=== PATIENT | male | born 1940 | race Caucasian/White ===

== ENCOUNTER 2018-09-03 06:24 | Inpatient (IN) ==
[2018-09-02 10:10] LABS: Basophils % 0.3 % (0.0-0.8); Eosinophils # 0.3 10*3/uL (0.0-0.87); Eosinophils % 4.3 % (0.00-10.9); Hematocrit 30.3 VOL% (42.0-52.0); Hemoglobin 9.5 GM/DL (14.0-18.0); Immature Granulocytes % 0.3 %; Immature Granulocytes Absolute 0.02 #; Lymphocytes # 0.6 10*3/uL (1.4-4.0); Lymphocytes % 9.4 % (21.2-54.2); Mean Corpuscular HGB Conc 31.4 GM/DL (32-36); Mean Corpuscular Hemoglobin 30 PG (27-34); Mean Corpuscular Volume 95.3 FL (87-102); Mean Platelet Volume 11.1 FL (9.6-12.0); Monocytes # 0.8 10*3/uL (0.11-0.8); Monocytes % 12.5 % (1.7-12.7); Neutrophils # 4.6 10*3/uL (1.4-7.4); Neutrophils % 73.2 % (38.7-73.9); Platelet Count 157 T/CUMM (130-400); Red Blood Count 3.18 MC/CUMM (3.8-5.5); Red Cell Distribution Width 14.4 % (9.3-17.3); White Blood Count 6.3 T/CUMM (4-12)
[2018-09-02 10:18] LABS: INR 1.1; PT Patient Result 11.4 SECS
[2018-09-02 10:38] LABS: Albumin 3.6 G/DL (3.4-5.0); Bilirubin,Total 0.5 MG/DL (0.2-1.0); Calcium 8.8 MG/DL (8.5-10.1); Osmolality,Calculated 288.1 MOS/KG (273-304); Potassium 4.2 MMOL/L (3.5-5.1); Total Protein 6.8 G/DL (6.4-8.3)
[~2018-09-03 06:24] MED LIST: HEPARIN 5,000 UNIT/1 ML VIAL ONE; LIDOCAINE 1% 20 ML VIAL ONE; LIDOCAINE 2% TOP JELLY 20 ML VIAL INTRAURETH ONE; THROMBIN TOPICAL (RECOMBINANT) 5,000 UNIT VIAL TOP ONE; TISSUE ADHESIVE 1 EACH APPLICATOR TOP ONE; VANCOMYCIN 500 MG VIAL ONE; ceFAZolin 1,000 MG VIAL ONE; ceFAZolin 1,000 MG in SYRINGE 1 EACH IV ONE
[2018-09-03] MEDS ORDERED: HEPARIN/NACL 0.9% 2 UNITS/ML 500 ML IV ONE (06:46)
[2018-09-03] MEDS: LACTATED RINGERS 1,000 ML IV SCH ×4 (07:03→22:17)
[2018-09-03] MEDS ORDERED: HEPARIN/NACL 0.9% 2 UNITS/ML 3,000 ML IV ONE (07:15)
[2018-09-03] MEDS ORDERED: ceFAZolin 1,000 MG VIAL ONE (07:26)
[2018-09-03 09:21] LABS: Amorphous Crystals,Urine Few /HPF (Few); Apearance,Urine CLOUDY (Clear); Bilirubin,Urine Negative (Negative); Blood, Urine Large mg/dL (Negative); Glucose,Urine (UA) Negative (Negative); Ketones,Urine Negative (Negative); Mucus,Urine Occasional /LPF (Occasional); Nitrite,Urine Negative (Negative); Protein,Urine 30 MG/DL; RBC,Urine 112 /HPF (0-4); Urine Color Yellow (Yellow); Urine Specific Gravity 1.012 (1.001-1.035); Urine Urobilinogen < 2.0 EU/DL (0.2-1.0); WBC,Urine 1 /HPF (0-6)
[2018-09-03] MEDS ORDERED: HYDROmorphone 2 MG/1 ML VIAL IV PRN ×2 (09:45→10:20)
[2018-09-03] MEDS ORDERED: ONDANSETRON 4 MG/2 ML VIAL IV PRN ×2 (09:45→10:20)
[2018-09-03] MEDS ORDERED: ePHEDrine 50 MG/ML AMP ONE (10:18)
[2018-09-03] MEDS ORDERED: ePHEDrine 50 MG/ML AMP IV ONE (10:19)
[2018-09-03] MEDS ORDERED: HEPARIN 10,000 UNIT/10 ML VIAL ONE (10:20)
[2018-09-03] MEDS ORDERED: ONDANSETRON 4 MG/2 ML VIAL ONE (10:20)
[2018-09-03] MEDS ORDERED: fentaNYL 100 MCG/2 ML VIAL ONE (10:20)
[2018-09-03] MEDS ORDERED: SEVOFLURANE 1 UNIT/15 MINUTE INH ONE (10:20)
[2018-09-03] MEDS ORDERED: MIDAZOLAM 2 MG/2 ML VIAL ONE (10:20)
[2018-09-03] MEDS ORDERED: PROPOFOL 200 MG/20 ML VIAL IV ONE (10:20)
[2018-09-03] MEDS ORDERED: SODIUM CHLORIDE 0.9% 1,000 ML IV ONE (10:21)
[2018-09-03] MEDS ORDERED: PHENYLEPHRINE 10 MG/1 ML VIAL IV ONE (10:21)
[2018-09-03] MEDS ORDERED: NEOSTIGMINE 10 MG/10 ML VIAL ONE (10:21)
[2018-09-03] MEDS ORDERED: SODIUM CHLORIDE 0.9% 250 ML IV ONE (10:21)
[2018-09-03] MEDS ORDERED: FUROSEMIDE 20 MG/2 ML VIAL ONE (10:21)
[2018-09-03] MEDS ORDERED: LACTATED RINGERS 1,000 ML IV ONE (10:21)
[2018-09-03] MEDS ORDERED: PROTAMINE SULFATE 50 MG/5 ML VIAL IV ONE (10:21)
[2018-09-03] MEDS ORDERED: PHENYLEPHRINE 1 MG/10 ML SYRINGE IV ONE (10:21)
[2018-09-03] MEDS ORDERED: GLYCOPYRROLATE 0.4 MG/2 ML VIAL ONE (10:21)
[2018-09-03] MEDS ORDERED: ROCURONIUM 100 MG/10 ML VIAL IV ONE (10:21)
[2018-09-03] MEDS ORDERED: LACTATED RINGERS 1,000 ML IV SCH (10:30)
[2018-09-03 11:47] LABS: Hematocrit 27.6 VOL% (42.0-52.0); Hemoglobin 8.9 GM/DL (14.0-18.0)
[2018-09-03 12:08] LABS: Calcium 8.1 MG/DL (8.5-10.1); Osmolality,Calculated 288.1 MOS/KG (273-304)
[2018-09-03] MEDS: FUROSEMIDE 80 MG TABLET PO SCH (15:39)
[2018-09-03] MEDS: INSULIN REGULAR 100 UNIT/ML SUBCUT SCH ×2 (16:08→20:25)
[2018-09-03] MEDS: CARVEDILOL 25 MG TABLET PO SCH (20:30)
[2018-09-03] MEDS: SACUBITRIL/VALSARTAN 49-51 MG TABLET PO SCH (20:30)
[2018-09-03] MEDS ORDERED: ATORVASTATIN 40 MG TABLET PO SCH (21:00)
[2018-09-03] MEDS ORDERED: SERTRALINE 50 MG TABLET PO SCH (21:00)
[2018-09-04 05:33] LABS: Calcium 8.2 MG/DL (8.5-10.1); Osmolality,Calculated 289.8 MOS/KG (273-304); Potassium 3.8 MMOL/L (3.5-5.1)
[2018-09-04] MEDS: LACTATED RINGERS 1,000 ML IV SCH ×3 (06:05→10:00)
[2018-09-04] MEDS ORDERED: LEVOTHYROXINE 50 MCG TABLET PO SCH (06:30)
[2018-09-04 07:44] VITALS: BP 134/63
[2018-09-04] MEDS: INSULIN REGULAR 100 UNIT/ML SUBCUT SCH (08:11)
[2018-09-04] MEDS ORDERED: ASPIRIN EC 81 MG TABLET PO SCH (09:00)
[2018-09-04] MEDS ORDERED: sitaGLIPtin 100 MG TABLET PO SCH (09:00)
[2018-09-04] MEDS ORDERED: SPIRONOLACTONE 25 MG TABLET PO SCH (09:00)
[2018-09-04] MEDS ORDERED: FERROUS SULFATE 325 MG TABLET PO SCH (09:00)
[2018-09-04] MEDS: SACUBITRIL/VALSARTAN 49-51 MG TABLET PO SCH (09:39)
[2018-09-04] MEDS: CARVEDILOL 25 MG TABLET PO SCH (09:40)
[2018-09-04] MEDS: FUROSEMIDE 80 MG TABLET PO SCH (09:40)
== END 2018-09-04 11:08 | disposition home or self-care (01) | DRG 269 ==
LOC: N.SDSINP 06:24 → N.3E 11:27
PROVIDERS: ADMIT Surgery; ATTEND Surgery
PROC: IRERAAA (2018-09-03 07:05)

== ENCOUNTER 2020-12-30 11:58 | Inpatient (IN) ==
[2020-12-30 12:43] LABS: Basophils % 0.1 % (0.0-0.8); Hemoglobin 9.3 GM/DL (14.0-18.0); Immature Granulocytes % 1.3 %; Immature Granulocytes Absolute 0.14 #; Lymphocytes # 0.6 10*3/uL (1.4-4.0); Lymphocytes % 5.3 % (21.2-54.2); Mean Corpuscular HGB Conc 33.2 GM/DL (32-36); Mean Corpuscular Volume 88.9 FL (87-102); Mean Platelet Volume 11.5 FL (9.6-12.0); NRBC # 0.05 10*3/uL; Neutrophils % 90.3 % (38.7-73.9); Platelet Count 246 T/CUMM (130-400); Red Blood Count 3.15 MC/CUMM (3.8-5.5); Red Cell Distribution Width 15.2 % (9.3-17.3); White Blood Count 11.1 T/CUMM (4-12)
[2020-12-30 13:12] LABS: Alanine Aminotransferase 169 U/L (16-61); Albumin 3.1 G/DL (3.4-5.0); Alkaline Phosphatase 80 U/L (45-117); Aspartate Amino Transferase 252 U/L (0-37); Blood Urea Nitrogen 97 MG/DL (7-18); Calcium 7.8 MG/DL (8.5-10.1); Carbon Dioxide 19 MMOL/L (21-32); Estimated Glom Filtration Rate 22 ML/MIN; Glucose 114 MG/DL (74-106); Osmolality,Calculated 313.1 MOS/KG (273-304); Sodium 142 MMOL/L (136-145); Total Protein 5.8 G/DL (6.4-8.2)
[2020-12-30] MEDS ORDERED: SODIUM CHLORIDE 0.9% 1,000 ML IV STA ×2 (13:12→14:16)
[2020-12-30] MEDS ORDERED: cefTRIAXone 1,000 MG in SODIUM CHLORIDE 0.9% 100 ML IV STA (13:12)
[2020-12-30] MEDS ORDERED: AZITHROMYCIN INJ 500 MG in SODIUM CHLORIDE 0.9% 250 ML IV STA (13:13)
[2020-12-30 13:39] LABS: Lymphocytes 6 % (20-55); Segmented Neutrophils 90 % (50-85); Total Cells Counted 100
[2020-12-30 13:40] LABS: Anisocytosis Slight; Platelet Estimate Adequate
[2020-12-30 13:41] LABS: Ovalocytes Slight
[2020-12-30 13:43] LABS: Ferritin 3689.3 ng/ml (26-388)
[2020-12-30 13:43] LABS: ABG Base Excess -6.7 MMOL/L (-2.5-2.5); ABG HCO3 18.9 MMOL/L (20-26); ABG Oxygen Saturation 99.2 % (95-100); ABG PCO2 28.7 MM HG (35-48); ABG PH 7.388 (7.35-7.45)
[2020-12-30] MEDS ORDERED: DEXTROSE 50% 25 GM/50 ML VIAL IV PRN ×2 (14:27)
[2020-12-30] MEDS ORDERED: ONDANSETRON 4 MG/2 ML VIAL IV PRN (14:27)
[2020-12-30] MEDS ORDERED: GLUCAGON 1 MG VIAL IM PRN ×2 (14:27)
[2020-12-30] MEDS ORDERED: HEPARIN 5,000 UNIT/1 ML VIAL SUBCUT SCH (15:00)
[2020-12-30] MEDS: ZINC GLUCONATE 50 MG TABLET PO SCH (15:08)
[2020-12-30] MEDS: DEXAMETHASONE 10 MG/1 ML VIAL IV SCH (15:08)
[2020-12-30] MEDS: SODIUM CHLORIDE 0.45% 1,000 ML IV SCH (17:34)
[2020-12-30] MEDS: INSULIN LISPRO 100 UNIT/ML SUBCUT SCH ×2 (17:35→20:48)
[2020-12-30] MEDS: DABIGATRAN 75 MG CAPSULE PO SCH (20:49)
[2020-12-31 05:57] LABS: Basophils % 0.1 % (0.0-0.8); Hematocrit 27.2 VOL% (42.0-52.0); Immature Granulocytes % 1.6 %; Immature Granulocytes Absolute 0.18 #; Lymphocytes # 0.4 10*3/uL (1.4-4.0); Lymphocytes % 3.7 % (21.2-54.2); Mean Corpuscular HGB Conc 33.1 GM/DL (32-36); Mean Corpuscular Volume 90.1 FL (87-102); Mean Platelet Volume 11.2 FL (9.6-12.0); Monocytes % 1.6 % (1.7-12.7); NRBC # 0.04 10*3/uL; Platelet Count 237 T/CUMM (130-400); Red Blood Count 3.02 MC/CUMM (3.8-5.5); Red Cell Distribution Width 14.9 % (9.3-17.3); White Blood Count 11.6 T/CUMM (4-12)
[2020-12-31] MEDS: LEVOTHYROXINE 50 MCG TABLET PO SCH (06:10)
[2020-12-31] MEDS: SODIUM CHLORIDE 0.45% 1,000 ML IV SCH ×2 (06:10→20:35)
[2020-12-31 06:47] LABS: Ferritin 3970.1 ng/ml (26-388)
[2020-12-31 06:54] LABS: Albumin 2.8 G/DL (3.4-5.0); Bilirubin,Total 0.8 MG/DL (0.20-1.00); Calcium 7.6 MG/DL (8.5-10.1); Risk Ratio 3.33; Thyroid Stimulating Hormone 0.691 uIU/ml (0.358-3.74); Total Protein 5.7 G/DL (6.4-8.2); VLDL Cholesterol 19.2 MG/DL
[2020-12-31 07:03] LABS: Lymphocytes 3 % (20-55); Segmented Neutrophils 94 % (50-85); Total Cells Counted 100
[2020-12-31 07:04] LABS: Burr Cells Few; Elliptocytes Few; Platelet Estimate Normal; Schistocytes Few
[2020-12-31] MEDS: ZINC GLUCONATE 50 MG TABLET PO SCH (09:00)
[2020-12-31] MEDS: ASPIRIN EC 81 MG TABLET PO SCH (09:00)
[2020-12-31] MEDS: PANTOPRAZOLE 40 MG TABLET PO SCH (09:00)
[2020-12-31] MEDS: DABIGATRAN 75 MG CAPSULE PO SCH ×2 (09:00→20:25)
[2020-12-31] MEDS: DEXAMETHASONE 10 MG/1 ML VIAL IV SCH (09:01)
[2020-12-31] MEDS: INSULIN LISPRO 100 UNIT/ML SUBCUT SCH ×4 (09:18→20:23)
[2020-12-31] MEDS ORDERED: ASCORBIC ACID 1000 MG PO SCH (12:00)
[2020-12-31] MEDS ORDERED: DEXAMETHASONE 10 MG/1 ML VIAL IV SCH (12:00)
[2020-12-31] MEDS ORDERED: carvediloL 25 MG TABLET PO SCH (12:00)
[2020-12-31] MEDS: FAMOTIDINE INJ 40 MG in SODIUM CHLORIDE 0.9% 100 ML IV SCH ×2 (12:42→23:50)
[2020-12-31] MEDS: CETIRIZINE 10 MG TABLET PO SCH (12:42)
[2020-12-31] MEDS: CHOLECALCIFEROL 5,000 UNIT TABLET PO SCH (12:42)
[2020-12-31] MEDS: cefTRIAXone 1,000 MG in SODIUM CHLORIDE 0.9% 100 ML IV SCH (13:50)
[2020-12-31] MEDS: AZITHROMYCIN INJ 500 MG in SODIUM CHLORIDE 0.9% 250 ML IV SCH (15:48)
[2020-12-31] MEDS: DEXAMETHASONE 4 MG/1 ML VIAL IV SCH ×2 (18:59→20:25)
[2020-12-31] MEDS: MELATONIN 3 MG TABLET PO SCH (20:24)
[2020-12-31] MEDS: carvediloL 12.5 MG TABLET PO SCH (20:25)
[2020-12-31] MEDS: ATORVASTATIN 80 MG TABLET PO SCH (20:25)
[2020-12-31] MEDS: SERTRALINE 50 MG TABLET PO SCH (20:25)
[2021-01-01] MEDS: DEXAMETHASONE 4 MG/1 ML VIAL IV SCH ×4 (03:21→21:05)
[2021-01-01] MEDS: LEVOTHYROXINE 50 MCG TABLET PO SCH (06:09)
[2021-01-01 06:43] LABS: Basophils % 0.1 % (0.0-0.8); Hematocrit 25.7 VOL% (42.0-52.0); Hemoglobin 8.4 GM/DL (14.0-18.0); Immature Granulocytes % 1.4 %; Immature Granulocytes Absolute 0.23 #; Lymphocytes # 0.5 10*3/uL (1.4-4.0); Lymphocytes % 3.1 % (21.2-54.2); Mean Corpuscular HGB Conc 32.7 GM/DL (32-36); Mean Corpuscular Volume 92.1 FL (87-102); Mean Platelet Volume 11.5 FL (9.6-12.0); Monocytes % 1.8 % (1.7-12.7); NRBC # 0.04 10*3/uL; Neutrophils % 93.6 % (38.7-73.9); Platelet Count 222 T/CUMM (130-400); Red Blood Count 2.79 MC/CUMM (3.8-5.5); Red Cell Distribution Width 15.1 % (9.3-17.3); White Blood Count 16.3 T/CUMM (4-12)
[2021-01-01 07:06] LABS: Acanthocytes Few; Band Neutrophils 3 % (0-10); Burr Cells Few; Hypochromasia 1+; Lymphocytes 2 % (20-55); Ovalocytes Few; Segmented Neutrophils 94 % (50-85); Total Cells Counted 100
[2021-01-01 07:07] LABS: Anisocytosis 1+; Microcytosis 1+; Platelet Estimate Normal
[2021-01-01 07:32] LABS: Albumin 2.7 G/DL (3.4-5.0); Bilirubin,Total 0.7 MG/DL (0.20-1.00); Calcium 7.9 MG/DL (8.5-10.1); Osmolality,Calculated 312.8 MOS/KG (273-304); Potassium 3.8 MMOL/L (3.5-5.1); Total Protein 5.5 G/DL (6.4-8.2)
[2021-01-01 07:44] LABS: Ferritin 3540.6 ng/ml (26-388)
[2021-01-01] MEDS: ASPIRIN EC 81 MG TABLET PO SCH (08:43)
[2021-01-01] MEDS: DABIGATRAN 75 MG CAPSULE PO SCH ×2 (08:44→21:05)
[2021-01-01] MEDS: PANTOPRAZOLE 40 MG TABLET PO SCH (08:44)
[2021-01-01] MEDS: carvediloL 12.5 MG TABLET PO SCH (08:44)
[2021-01-01] MEDS: ASCORBIC ACID 500 MG TABLET PO SCH (08:45)
[2021-01-01] MEDS: ZINC GLUCONATE 50 MG TABLET PO SCH (08:45)
[2021-01-01] MEDS: CHOLECALCIFEROL 5,000 UNIT TABLET PO SCH (08:45)
[2021-01-01] MEDS: CETIRIZINE 10 MG TABLET PO SCH (08:45)
[2021-01-01] MEDS: INSULIN LISPRO 100 UNIT/ML SUBCUT SCH ×4 (09:55→21:04)
[2021-01-01] MEDS: SODIUM CHLORIDE 0.45% 1,000 ML IV SCH ×3 (09:55→23:12)
[2021-01-01] MEDS: cefTRIAXone 1,000 MG in SODIUM CHLORIDE 0.9% 100 ML IV SCH (12:04)
[2021-01-01] MEDS: AZITHROMYCIN INJ 500 MG in SODIUM CHLORIDE 0.9% 250 ML IV SCH (12:04)
[2021-01-01] MEDS: FAMOTIDINE INJ 40 MG in SODIUM CHLORIDE 0.9% 100 ML IV SCH (12:04)
[2021-01-01] MEDS: carvediloL 6.25 MG TABLET PO SCH (21:05)
[2021-01-01] MEDS: SERTRALINE 50 MG TABLET PO SCH (21:05)
[2021-01-01] MEDS: ATORVASTATIN 80 MG TABLET PO SCH (21:06)
[2021-01-01] MEDS: MELATONIN 3 MG TABLET PO SCH (21:14)
[2021-01-02] MEDS: FAMOTIDINE INJ 40 MG in SODIUM CHLORIDE 0.9% 100 ML IV SCH ×3 (00:06→23:56)
[2021-01-02] MEDS: DEXAMETHASONE 4 MG/1 ML VIAL IV SCH ×4 (03:35→20:36)
[2021-01-02] MEDS: SODIUM CHLORIDE 0.45% 1,000 ML IV SCH ×2 (04:30→16:25)
[2021-01-02] MEDS: LEVOTHYROXINE 50 MCG TABLET PO SCH (05:58)
[2021-01-02 06:46] LABS: Basophils % 0.1 % (0.0-0.8); Hematocrit 28.7 VOL% (42.0-52.0); Hemoglobin 9.1 GM/DL (14.0-18.0); Immature Granulocytes % 1.2 %; Immature Granulocytes Absolute 0.19 #; Lymphocytes # 0.3 10*3/uL (1.4-4.0); Lymphocytes % 1.7 % (21.2-54.2); Mean Corpuscular HGB Conc 31.7 GM/DL (32-36); Mean Corpuscular Volume 93.5 FL (87-102); Mean Platelet Volume 11.2 FL (9.6-12.0); Monocytes % 2.4 % (1.7-12.7); NRBC # 0.04 10*3/uL; Neutrophils % 94.6 % (38.7-73.9); Platelet Count 230 T/CUMM (130-400); Red Blood Count 3.07 MC/CUMM (3.8-5.5); Red Cell Distribution Width 15.2 % (9.3-17.3); White Blood Count 16.4 T/CUMM (4-12)
[2021-01-02 07:08] LABS: Bilirubin,Urine Negative (Negative); Blood, Urine Negative (Negative); Glucose,Urine (UA) Negative (Negative); Ketones,Urine Negative (Negative); Nitrite,Urine Negative (Negative); Protein,Urine Negative; RBC,Urine <1 /HPF (0-4); Squamous Epithelial Cell,Urine Occasional /HPF (0-10); Urine Appearance CLEAR (Clear); Urine Color Yellow (Yellow); Urine Specific Gravity 1.017 (1.001-1.035); Urine Urobilinogen < 2.0 EU/DL (0.2-1.0)
[2021-01-02 07:10] LABS: Burr Cells Slight; Lymphocytes 2 % (20-55); Ovalocytes Slight; Platelet Estimate Adequate; Segmented Neutrophils 96 % (50-85); Total Cells Counted 100
[2021-01-02 07:11] LABS: Hypochromasia 1+; Microcytosis 1+
[2021-01-02 07:25] LABS: Albumin 2.7 G/DL (3.4-5.0); Bilirubin,Total 0.9 MG/DL (0.20-1.00); Calcium 8.1 MG/DL (8.5-10.1); Osmolality,Calculated 307.8 MOS/KG (273-304); Potassium 3.8 MMOL/L (3.5-5.1); Total Protein 5.8 G/DL (6.4-8.2)
[2021-01-02 07:49] LABS: Ferritin 3456.4 ng/ml (26-388)
[2021-01-02] MEDS: CHOLECALCIFEROL 5,000 UNIT TABLET PO SCH (08:41)
[2021-01-02] MEDS: ZINC GLUCONATE 50 MG TABLET PO SCH (08:41)
[2021-01-02] MEDS: ASCORBIC ACID 500 MG TABLET PO SCH (08:41)
[2021-01-02] MEDS: DABIGATRAN 75 MG CAPSULE PO SCH ×2 (08:41→20:36)
[2021-01-02] MEDS: carvediloL 6.25 MG TABLET PO SCH ×2 (08:41→20:36)
[2021-01-02] MEDS: ASPIRIN EC 81 MG TABLET PO SCH (08:41)
[2021-01-02] MEDS: CETIRIZINE 10 MG TABLET PO SCH (08:42)
[2021-01-02] MEDS: INSULIN LISPRO 100 UNIT/ML SUBCUT SCH ×4 (09:00→20:37)
[2021-01-02] MEDS: AZITHROMYCIN INJ 500 MG in SODIUM CHLORIDE 0.9% 250 ML IV SCH (13:13)
[2021-01-02] MEDS: cefTRIAXone 1,000 MG in SODIUM CHLORIDE 0.9% 100 ML IV SCH (13:13)
[2021-01-02] MEDS ORDERED: FUROSEMIDE 40 MG/4 ML VIAL IV ONE (14:41)
[2021-01-02] MEDS: SERTRALINE 50 MG TABLET PO SCH (20:36)
[2021-01-02] MEDS: ATORVASTATIN 80 MG TABLET PO SCH (20:37)
[2021-01-02] MEDS: MELATONIN 3 MG TABLET PO SCH (20:37)
[2021-01-03] MEDS: DEXAMETHASONE 4 MG/1 ML VIAL IV SCH ×3 (03:38→15:41)
[2021-01-03] MEDS: LEVOTHYROXINE 50 MCG TABLET PO SCH (06:00)
[2021-01-03 06:48] LABS: Basophils % 0.1 % (0.0-0.8); Hemoglobin 9.9 GM/DL (14.0-18.0); Immature Granulocytes % 1.2 %; Immature Granulocytes Absolute 0.23 #; Lymphocytes # 0.2 10*3/uL (1.4-4.0); Lymphocytes % 1.1 % (21.2-54.2); Mean Corpuscular Volume 91.7 FL (87-102); Mean Platelet Volume 11.2 FL (9.6-12.0); Monocytes % 2.9 % (1.7-12.7); NRBC # 0.02 10*3/uL; Neutrophils % 94.7 % (38.7-73.9); Platelet Count 223 T/CUMM (130-400); Red Blood Count 3.27 MC/CUMM (3.8-5.5); Red Cell Distribution Width 15.7 % (9.3-17.3); White Blood Count 18.4 T/CUMM (4-12)
[2021-01-03 07:08] LABS: Burr Cells Slight; Hypochromasia 1+; Microcytosis 1+; Ovalocytes Slight; Platelet Estimate Adequate; Segmented Neutrophils 97 % (50-85); Total Cells Counted 100
[2021-01-03 07:21] LABS: Albumin 2.8 G/DL (3.4-5.0); Bilirubin,Total 1.2 MG/DL (0.20-1.00); Calcium 8.4 MG/DL (8.5-10.1); Ferritin 3245.1 ng/ml (26-388); Osmolality,Calculated 306.7 MOS/KG (273-304); Potassium 3.8 MMOL/L (3.5-5.1)
[2021-01-03] MEDS: FUROSEMIDE 40 MG/4 ML VIAL IV SCH ×2 (08:34→15:48)
[2021-01-03] MEDS: carvediloL 6.25 MG TABLET PO SCH ×2 (08:36→21:33)
[2021-01-03] MEDS: QUEtiapine 25 MG TABLET PO SCH ×2 (08:36→21:33)
[2021-01-03] MEDS: ASPIRIN EC 81 MG TABLET PO SCH (08:36)
[2021-01-03] MEDS: DILTIAZEM INJ 100 MG in SODIUM CHLORIDE 0.9% 100 ML IV SCH (08:45)
[2021-01-03] MEDS: INSULIN LISPRO 100 UNIT/ML SUBCUT SCH ×4 (09:01→21:38)
[2021-01-03] MEDS: ASCORBIC ACID 500 MG TABLET PO SCH (09:56)
[2021-01-03] MEDS: CHOLECALCIFEROL 5,000 UNIT TABLET PO SCH (09:56)
[2021-01-03] MEDS: CETIRIZINE 10 MG TABLET PO SCH (09:56)
[2021-01-03] MEDS: ZINC GLUCONATE 50 MG TABLET PO SCH (09:56)
[2021-01-03] MEDS: DABIGATRAN 75 MG CAPSULE PO SCH ×2 (09:56→21:33)
[2021-01-03] MEDS: HALOPERIDOL 5 MG/ML AMP IM PRN ×2 (10:19→21:39)
[2021-01-03] MEDS: cefTRIAXone 1,000 MG in SODIUM CHLORIDE 0.9% 100 ML IV SCH (12:38)
[2021-01-03] MEDS: FAMOTIDINE INJ 40 MG in SODIUM CHLORIDE 0.9% 100 ML IV SCH (12:57)
[2021-01-03] MEDS: AZITHROMYCIN INJ 500 MG in SODIUM CHLORIDE 0.9% 250 ML IV SCH (14:05)
[2021-01-03] MEDS: methylPREDNISolone SOD SUC 40 MG/1 ML VIAL IV SCH ×2 (15:50→21:44)
[2021-01-03] MEDS ORDERED: REMDESIVIR 200 MG in SODIUM CHLORIDE 0.9% 210 ML IV ONE (16:00)
[2021-01-03] MEDS: ATORVASTATIN 80 MG TABLET PO SCH (21:33)
[2021-01-03] MEDS: SERTRALINE 50 MG TABLET PO SCH (21:33)
[2021-01-03] MEDS: MELATONIN 3 MG TABLET PO SCH (21:33)
[2021-01-03] MEDS: MONTELUKAST 10 MG TABLET PO SCH (21:33)
[2021-01-04] MEDS: FAMOTIDINE INJ 40 MG in SODIUM CHLORIDE 0.9% 100 ML IV SCH ×3 (00:46→23:41)
[2021-01-04] MEDS: methylPREDNISolone SOD SUC 40 MG/1 ML VIAL IV SCH ×4 (04:21→21:34)
[2021-01-04 04:53] LABS: ABG Base Excess -0.8 MMOL/L (-2.5-2.5); ABG HCO3 23.3 MMOL/L (20-26); ABG Oxygen Saturation 93.6 % (95-100); ABG PCO2 36.4 MM HG (35-48); ABG PH 7.424 (7.35-7.45); ABG PO2 73.5 MM HG (80-95); ABG TCO2 24.4 MMOL/L (23-27); Allen Test Positive; Pt O2 Delivery Device Other
[2021-01-04] MEDS: LEVOTHYROXINE 50 MCG TABLET PO SCH (06:12)
[2021-01-04 06:42] LABS: Hematocrit 27.4 VOL% (42.0-52.0); Hemoglobin 8.9 GM/DL (14.0-18.0); Lymphocytes # 0.1 10*3/uL (1.4-4.0); Lymphocytes % 1.4 % (21.2-54.2); Mean Corpuscular HGB Conc 32.5 GM/DL (32-36); Mean Corpuscular Volume 91.3 FL (87-102); Mean Platelet Volume 11.6 FL (9.6-12.0); Monocytes % 1.8 % (1.7-12.7); Neutrophils % 95.8 % (38.7-73.9); Platelet Count 176 T/CUMM (130-400); Red Cell Distribution Width 15.7 % (9.3-17.3); White Blood Count 9.9 T/CUMM (4-12)
[2021-01-04 07:12] LABS: Calcium 7.9 MG/DL (8.5-10.1); Osmolality,Calculated 311.3 MOS/KG (273-304); Potassium 3.8 MMOL/L (3.5-5.1)
[2021-01-04 07:17] LABS: Lymphocytes 1 % (20-55); Platelet Estimate Normal; Segmented Neutrophils 98 % (50-85); Total Cells Counted 100
[2021-01-04 07:26] LABS: Ferritin 2336.5 ng/ml (26-388)
[2021-01-04] MEDS: FUROSEMIDE 40 MG/4 ML VIAL IV SCH ×2 (09:28→15:52)
[2021-01-04] MEDS: DABIGATRAN 75 MG CAPSULE PO SCH ×2 (09:30→21:21)
[2021-01-04] MEDS: CHOLECALCIFEROL 5,000 UNIT TABLET PO SCH (09:30)
[2021-01-04] MEDS: carvediloL 6.25 MG TABLET PO SCH ×2 (09:30→21:21)
[2021-01-04] MEDS: ASPIRIN EC 81 MG TABLET PO SCH (09:30)
[2021-01-04] MEDS: ZINC GLUCONATE 50 MG TABLET PO SCH (09:30)
[2021-01-04] MEDS: CETIRIZINE 10 MG TABLET PO SCH (09:30)
[2021-01-04] MEDS: QUEtiapine 25 MG TABLET PO SCH ×2 (09:30→21:21)
[2021-01-04] MEDS: ASCORBIC ACID 500 MG TABLET PO SCH (09:30)
[2021-01-04] MEDS: REMDESIVIR 100 MG in SODIUM CHLORIDE 0.9% 100 ML IV SCH (09:33)
[2021-01-04] MEDS: INSULIN LISPRO 100 UNIT/ML SUBCUT SCH ×4 (10:01→21:27)
[2021-01-04] MEDS: DILTIAZEM INJ 100 MG in SODIUM CHLORIDE 0.9% 100 ML IV SCH ×2 (10:02→13:30)
[2021-01-04] MEDS ORDERED: DIGOXIN 0.5 MG/2 ML AMP IV ONE (11:28)
[2021-01-04] MEDS: HALOPERIDOL 5 MG/ML AMP IM PRN (12:50)
[2021-01-04] MEDS: cefTRIAXone 1,000 MG in SODIUM CHLORIDE 0.9% 100 ML IV SCH (13:33)
[2021-01-04] MEDS: AZITHROMYCIN INJ 500 MG in SODIUM CHLORIDE 0.9% 250 ML IV SCH (16:07)
[2021-01-04] MEDS: OLANZapine 10 MG VIAL IM SCH (17:13)
[2021-01-04] MEDS: MELATONIN 3 MG TABLET PO SCH (21:21)
[2021-01-04] MEDS: SERTRALINE 50 MG TABLET PO SCH (21:21)
[2021-01-04] MEDS: MONTELUKAST 10 MG TABLET PO SCH (21:21)
[2021-01-04] MEDS: ATORVASTATIN 80 MG TABLET PO SCH (21:21)
[2021-01-05] MEDS: methylPREDNISolone SOD SUC 40 MG/1 ML VIAL IV SCH ×4 (03:12→21:55)
[2021-01-05 04:17] LABS: ABG Base Excess 3.1 MMOL/L (-2.5-2.5); ABG HCO3 27.5 MMOL/L (20-26); ABG Oxygen Saturation 90.7 % (95-100); ABG PH 7.444 (7.35-7.45); ABG PO2 63.8 MM HG (80-95); ABG TCO2 28.7 MMOL/L (23-27); Allen Test Positive; Pt O2 Delivery Device Other
[2021-01-05] MEDS: DILTIAZEM INJ 100 MG in SODIUM CHLORIDE 0.9% 100 ML IV SCH ×2 (05:45→11:34)
[2021-01-05 06:09] LABS: Basophils % 0.1 % (0.0-0.8); Immature Granulocytes % 0.6 %; Immature Granulocytes Absolute 0.08 #; Lymphocytes # 0.1 10*3/uL (1.4-4.0); Lymphocytes % 0.9 % (21.2-54.2); Mean Corpuscular HGB Conc 32.1 GM/DL (32-36); Mean Corpuscular Volume 91.2 FL (87-102); Mean Platelet Volume 12.1 FL (9.6-12.0); Monocytes % 1.6 % (1.7-12.7); Neutrophils % 96.8 % (38.7-73.9); Platelet Count 166 T/CUMM (130-400); Red Blood Count 3.07 MC/CUMM (3.8-5.5); Red Cell Distribution Width 15.8 % (9.3-17.3); White Blood Count 13.2 T/CUMM (4-12)
[2021-01-05] MEDS: LEVOTHYROXINE 50 MCG TABLET PO SCH (06:09)
[2021-01-05 06:16] LABS: Calcium 8.2 MG/DL (8.5-10.1); Osmolality,Calculated 311.3 MOS/KG (273-304); Potassium 3.5 MMOL/L (3.5-5.1)
[2021-01-05 06:32] LABS: Band Neutrophils 1 % (0-10); Lymphocytes 1 % (20-55); Nucleated Red Blood Cells 1 (0-5); Segmented Neutrophils 95 % (50-85); Total Cells Counted 100
[2021-01-05 06:33] LABS: Hypochromasia 1+
[2021-01-05 06:34] LABS: Acanthocytes Few; Microcytosis 1+; Ovalocytes Few
[2021-01-05 06:35] LABS: Platelet Estimate Adequate
[2021-01-05] MEDS: QUEtiapine 25 MG TABLET PO SCH ×2 (08:15→21:59)
[2021-01-05] MEDS: ASPIRIN EC 81 MG TABLET PO SCH (08:15)
[2021-01-05] MEDS: ZINC GLUCONATE 50 MG TABLET PO SCH (08:15)
[2021-01-05] MEDS: CETIRIZINE 10 MG TABLET PO SCH (08:15)
[2021-01-05] MEDS: CHOLECALCIFEROL 5,000 UNIT TABLET PO SCH (08:15)
[2021-01-05] MEDS: DABIGATRAN 75 MG CAPSULE PO SCH ×2 (08:16→21:59)
[2021-01-05] MEDS: carvediloL 6.25 MG TABLET PO SCH ×2 (08:16→21:59)
[2021-01-05] MEDS: ASCORBIC ACID 500 MG TABLET PO SCH (08:16)
[2021-01-05] MEDS: FUROSEMIDE 40 MG/4 ML VIAL IV SCH ×2 (08:17→15:57)
[2021-01-05] MEDS: INSULIN LISPRO 100 UNIT/ML SUBCUT SCH ×4 (08:18→21:54)
[2021-01-05] MEDS: OLANZapine 10 MG VIAL IM SCH ×3 (08:21→21:50)
[2021-01-05] MEDS: REMDESIVIR 100 MG in SODIUM CHLORIDE 0.9% 100 ML IV SCH (10:07)
[2021-01-05] MEDS: DIGOXIN 0.5 MG/2 ML AMP IV SCH (10:58)
[2021-01-05] MEDS ORDERED: SUCCINYLCHOLINE 200 MG/10 ML VIAL ONE (13:20)
[2021-01-05] MEDS ORDERED: ETOMIDATE 20 MG/10 ML VIAL IV ONE (13:20)
[2021-01-05] MEDS: FAMOTIDINE INJ 40 MG in SODIUM CHLORIDE 0.9% 100 ML IV SCH (13:46)
[2021-01-05] MEDS: cefTRIAXone 1,000 MG in SODIUM CHLORIDE 0.9% 100 ML IV SCH (13:50)
[2021-01-05] MEDS: MELATONIN 3 MG TABLET PO SCH (21:59)
[2021-01-05] MEDS: ATORVASTATIN 80 MG TABLET PO SCH (21:59)
[2021-01-05] MEDS: MONTELUKAST 10 MG TABLET PO SCH (21:59)
[2021-01-05] MEDS: SERTRALINE 50 MG TABLET PO SCH (21:59)
[2021-01-06] MEDS: FAMOTIDINE INJ 40 MG in SODIUM CHLORIDE 0.9% 100 ML IV SCH ×2 (01:10→12:21)
[2021-01-06] MEDS: methylPREDNISolone SOD SUC 40 MG/1 ML VIAL IV SCH ×4 (03:20→21:15)
[2021-01-06 04:29] LABS: Allen Test Positive; Pt O2 Delivery Device Other
[2021-01-06 04:32] LABS: ABG Base Excess 5.3 MMOL/L (-2.5-2.5); ABG HCO3 29.3 MMOL/L (20-26); ABG Oxygen Saturation 92.1 % (95-100); ABG PCO2 40.8 MM HG (35-48); ABG PH 7.474 (7.35-7.45); ABG PO2 65.7 MM HG (80-95); ABG TCO2 30.5 MMOL/L (23-27)
[2021-01-06] MEDS: LEVOTHYROXINE 50 MCG TABLET PO SCH (05:44)
[2021-01-06 05:57] LABS: Basophils % 0.1 % (0.0-0.8); Hematocrit 29.2 VOL% (42.0-52.0); Hemoglobin 9.5 GM/DL (14.0-18.0); Immature Granulocytes % 0.4 %; Immature Granulocytes Absolute 0.06 #; Lymphocytes # 0.1 10*3/uL (1.4-4.0); Lymphocytes % 0.8 % (21.2-54.2); Mean Corpuscular HGB Conc 32.5 GM/DL (32-36); Mean Platelet Volume 12.1 FL (9.6-12.0); Monocytes % 1.7 % (1.7-12.7); Platelet Count 160 T/CUMM (130-400); Red Blood Count 3.21 MC/CUMM (3.8-5.5); Red Cell Distribution Width 15.7 % (9.3-17.3); White Blood Count 13.8 T/CUMM (4-12)
[2021-01-06 06:19] LABS: Burr Cells Slight; Hypochromasia 1+; Lymphocytes 1 % (20-55); Microcytosis 1+; Ovalocytes Slight; Platelet Estimate Adequate; Segmented Neutrophils 97 % (50-85); Total Cells Counted 100
[2021-01-06 06:29] LABS: Calcium 8.4 MG/DL (8.5-10.1); Osmolality,Calculated 312.1 MOS/KG (273-304); Potassium 3.2 MMOL/L (3.5-5.1)
[2021-01-06] MEDS: DILTIAZEM INJ 100 MG in SODIUM CHLORIDE 0.9% 100 ML IV SCH ×2 (06:50→09:30)
[2021-01-06] MEDS: INSULIN LISPRO 100 UNIT/ML SUBCUT SCH ×4 (08:16→21:12)
[2021-01-06] MEDS: carvediloL 6.25 MG TABLET PO SCH ×2 (08:17→21:14)
[2021-01-06] MEDS: ASPIRIN EC 81 MG TABLET PO SCH (08:17)
[2021-01-06] MEDS: ASCORBIC ACID 500 MG TABLET PO SCH (08:18)
[2021-01-06] MEDS: QUEtiapine 25 MG TABLET PO SCH ×2 (08:18→21:14)
[2021-01-06] MEDS: DIGOXIN 0.5 MG/2 ML AMP IV SCH (08:18)
[2021-01-06] MEDS: DABIGATRAN 75 MG CAPSULE PO SCH (08:18)
[2021-01-06] MEDS: ZINC GLUCONATE 50 MG TABLET PO SCH (08:19)
[2021-01-06] MEDS: CETIRIZINE 10 MG TABLET PO SCH (08:19)
[2021-01-06] MEDS: CHOLECALCIFEROL 5,000 UNIT TABLET PO SCH (08:19)
[2021-01-06] MEDS ORDERED: ETOMIDATE 20 MG/10 ML VIAL IV ONE (08:22)
[2021-01-06] MEDS ORDERED: SUCCINYLCHOLINE 200 MG/10 ML VIAL ONE (08:23)
[2021-01-06] MEDS: REMDESIVIR 100 MG in SODIUM CHLORIDE 0.9% 100 ML IV SCH (09:29)
[2021-01-06] MEDS: FUROSEMIDE 40 MG/4 ML VIAL IV SCH (09:31)
[2021-01-06] MEDS: OLANZapine 10 MG VIAL IM SCH ×2 (09:32→21:14)
[2021-01-06] MEDS: amLODIPine 5 MG TABLET PO SCH (12:19)
[2021-01-06] MEDS: POTASSIUM BICARB EFFERVESCENT 20 MEQ TAB.EFF PO PRN ×4 (12:20→21:14)
[2021-01-06] MEDS: DABIGATRAN 150 MG CAPSULE PO SCH ×2 (12:20→21:13)
[2021-01-06] MEDS: cefTRIAXone 1,000 MG in SODIUM CHLORIDE 0.9% 100 ML IV SCH (12:21)
[2021-01-06] MEDS: LACTATED RINGERS 1,000 ML IV SCH ×2 (12:53→23:11)
[2021-01-06] MEDS ORDERED: METOPROLOL TARTRATE 5 MG/5 ML VIAL IV PRN (16:44)
[2021-01-06] MEDS ORDERED: cloNIDine 0.3 MG/24 HR PATCH TRANSDERM SCH (17:00)
[2021-01-06] MEDS: MELATONIN 3 MG TABLET PO SCH (21:13)
[2021-01-06] MEDS: SERTRALINE 50 MG TABLET PO SCH (21:14)
[2021-01-06] MEDS: MONTELUKAST 10 MG TABLET PO SCH (21:14)
[2021-01-06] MEDS: ATORVASTATIN 80 MG TABLET PO SCH (21:14)
[2021-01-07] MEDS: FAMOTIDINE INJ 40 MG in SODIUM CHLORIDE 0.9% 100 ML IV SCH ×2 (00:03→11:51)
[2021-01-07] MEDS: LACTATED RINGERS 1,000 ML IV SCH ×3 (03:09→20:38)
[2021-01-07] MEDS: methylPREDNISolone SOD SUC 40 MG/1 ML VIAL IV SCH ×4 (03:18→22:27)
[2021-01-07 03:39] LABS: ABG Base Excess 6.8 MMOL/L (-2.5-2.5); ABG HCO3 30.9 MMOL/L (20-26); ABG Oxygen Saturation 91.2 % (95-100); ABG PCO2 41.9 MM HG (35-48); ABG PH 7.485 (7.35-7.45); ABG PO2 63.1 MM HG (80-95); ABG TCO2 32.1 MMOL/L (23-27)
[2021-01-07 05:22] LABS: Basophils % 0.1 % (0.0-0.8); Hematocrit 29.6 VOL% (42.0-52.0); Hemoglobin 9.5 GM/DL (14.0-18.0); Immature Granulocytes % 0.6 %; Immature Granulocytes Absolute 0.09 #; Lymphocytes # 0.1 10*3/uL (1.4-4.0); Lymphocytes % 0.7 % (21.2-54.2); Mean Corpuscular HGB Conc 32.1 GM/DL (32-36); Mean Corpuscular Volume 91.9 FL (87-102); Mean Platelet Volume 12.8 FL (9.6-12.0); Monocytes % 1.5 % (1.7-12.7); Neutrophils % 97.1 % (38.7-73.9); Platelet Count 128 T/CUMM (130-400); Red Blood Count 3.22 MC/CUMM (3.8-5.5); Red Cell Distribution Width 15.8 % (9.3-17.3); White Blood Count 15.1 T/CUMM (4-12)
[2021-01-07] MEDS: DILTIAZEM INJ 100 MG in SODIUM CHLORIDE 0.9% 100 ML IV SCH ×2 (05:36→11:41)
[2021-01-07 05:43] LABS: Calcium 8.5 MG/DL (8.5-10.1); Osmolality,Calculated 321.7 MOS/KG (273-304); Potassium 3.9 MMOL/L (3.5-5.1)
[2021-01-07 05:47] LABS: Segmented Neutrophils 97 % (50-85); Total Cells Counted 100
[2021-01-07 05:48] LABS: Hypochromasia 1+; Microcytosis 1+
[2021-01-07] MEDS: LEVOTHYROXINE 50 MCG TABLET PO SCH (06:20)
[2021-01-07] MEDS: POTASSIUM BICARB EFFERVESCENT 20 MEQ TAB.EFF PO PRN (06:20)
[2021-01-07] MEDS: DIGOXIN 0.5 MG/2 ML AMP IV SCH (08:11)
[2021-01-07] MEDS: INSULIN LISPRO 100 UNIT/ML SUBCUT SCH ×4 (08:11→23:59)
[2021-01-07] MEDS: CHOLECALCIFEROL 5,000 UNIT TABLET PO SCH (08:12)
[2021-01-07] MEDS: DABIGATRAN 150 MG CAPSULE PO SCH (08:12)
[2021-01-07] MEDS: QUEtiapine 25 MG TABLET PO SCH ×2 (08:12→20:39)
[2021-01-07] MEDS: carvediloL 6.25 MG TABLET PO SCH ×2 (08:12→20:38)
[2021-01-07] MEDS: ZINC GLUCONATE 50 MG TABLET PO SCH (08:12)
[2021-01-07] MEDS: ASPIRIN EC 81 MG TABLET PO SCH (08:12)
[2021-01-07] MEDS: ASCORBIC ACID 500 MG TABLET PO SCH (08:13)
[2021-01-07] MEDS: CETIRIZINE 10 MG TABLET PO SCH (08:13)
[2021-01-07] MEDS: amLODIPine 5 MG TABLET PO SCH (08:13)
[2021-01-07] MEDS: REMDESIVIR 100 MG in SODIUM CHLORIDE 0.9% 100 ML IV SCH (08:31)
[2021-01-07] MEDS ORDERED: OLANZapine 10 MG VIAL IM PRN (11:27)
[2021-01-07] MEDS: OLANZapine 10 MG VIAL IM SCH (11:42)
[2021-01-07] MEDS ORDERED: LACTATED RINGERS 500 ML IV ONE (12:00)
[2021-01-07] MEDS ORDERED: SUCCINYLCHOLINE 200 MG/10 ML VIAL ONE (12:11)
[2021-01-07] MEDS ORDERED: ETOMIDATE 20 MG/10 ML VIAL IV ONE ×4 (12:11→12:34)
[2021-01-07] MEDS ORDERED: SUCCINYLCHOLINE 200 MG/10 ML VIAL IV ONE (12:33)
[2021-01-07] MEDS ORDERED: MIDAZOLAM 2 MG/2 ML VIAL ONE (12:57)
[2021-01-07] MEDS ORDERED: MIDAZOLAM 2 MG/2 ML VIAL IV ONE (12:57)
[2021-01-07] MEDS: MIDAZOLAM 100 MG in SODIUM CHLORIDE 0.9% 80 ML IV PRN ×2 (13:09→21:14)
[2021-01-07] MEDS: FUROSEMIDE 40 MG/4 ML VIAL IV SCH (15:04)
[2021-01-07 15:28] LABS: ABG Base Excess 5.3 MMOL/L (-2.5-2.5); ABG HCO3 29.3 MMOL/L (20-26); ABG Oxygen Saturation 99.7 % (95-100); ABG PCO2 50.1 MM HG (35-48); ABG PH 7.399 (7.35-7.45); ABG TCO2 28.9 MMOL/L (23-27)
[2021-01-07] MEDS: MELATONIN 3 MG TABLET PO SCH (20:01)
[2021-01-07] MEDS: ATORVASTATIN 80 MG TABLET PO SCH (20:38)
[2021-01-07] MEDS: MONTELUKAST 10 MG TABLET PO SCH (20:38)
[2021-01-07] MEDS: SERTRALINE 50 MG TABLET PO SCH (20:39)
[2021-01-07] MEDS: ENOXAPARIN 80 MG/0.8 ML SYRINGE SUBCUT SCH (20:41)
[2021-01-08] MEDS: FAMOTIDINE INJ 40 MG in SODIUM CHLORIDE 0.9% 100 ML IV SCH ×2 (01:00→12:40)
[2021-01-08] MEDS: methylPREDNISolone SOD SUC 40 MG/1 ML VIAL IV SCH ×4 (04:19→21:26)
[2021-01-08 04:51] LABS: ABG Base Excess 5.9 MMOL/L (-2.5-2.5); ABG HCO3 29.6 MMOL/L (20-26); ABG Oxygen Saturation 88.5 % (95-100); ABG PCO2 54.1 MM HG (35-48); ABG PH 7.381 (7.35-7.45); ABG TCO2 29.8 MMOL/L (23-27); Allen Test Positive; Pt O2 Delivery Device Ventilator
[2021-01-08 05:51] LABS: Basophils % 0.1 % (0.0-0.8); Hematocrit 26.2 VOL% (42.0-52.0); Hemoglobin 8.3 GM/DL (14.0-18.0); Immature Granulocytes % 0.5 %; Immature Granulocytes Absolute 0.05 #; Lymphocytes # 0.1 10*3/uL (1.4-4.0); Lymphocytes % 0.8 % (21.2-54.2); Mean Corpuscular HGB Conc 31.7 GM/DL (32-36); Mean Corpuscular Volume 93.9 FL (87-102); Mean Platelet Volume 13.2 FL (9.6-12.0); Neutrophils % 95.6 % (38.7-73.9); Red Blood Count 2.79 MC/CUMM (3.8-5.5); Red Cell Distribution Width 15.9 % (9.3-17.3)
[2021-01-08 05:54] LABS: Platelet Count 99 T/CUMM (130-400); White Blood Count 10.5 T/CUMM (4-12)
[2021-01-08 05:55] LABS: Calcium 8.3 MG/DL (8.5-10.1); Potassium 3.8 MMOL/L (3.5-5.1)
[2021-01-08 05:56] LABS: Lymphocytes 3 % (20-55); Platelet Estimate Decreased; Segmented Neutrophils 95 % (50-85); Total Cells Counted 100
[2021-01-08 06:02] LABS: Osmolality,Calculated 317.7 MOS/KG (273-304)
[2021-01-08] MEDS: INSULIN LISPRO 100 UNIT/ML SUBCUT SCH ×4 (06:11→23:38)
[2021-01-08] MEDS: LEVOTHYROXINE 50 MCG TABLET PO SCH (06:18)
[2021-01-08] MEDS: POTASSIUM BICARB EFFERVESCENT 20 MEQ TAB.EFF PO PRN (06:18)
[2021-01-08] MEDS: QUEtiapine 25 MG TABLET PO SCH ×2 (08:03→21:26)
[2021-01-08] MEDS: CETIRIZINE 10 MG TABLET PO SCH (08:03)
[2021-01-08] MEDS: ZINC GLUCONATE 50 MG TABLET PO SCH (08:03)
[2021-01-08] MEDS: amLODIPine 5 MG TABLET PO SCH (08:03)
[2021-01-08] MEDS: ASCORBIC ACID 500 MG TABLET PO SCH (08:03)
[2021-01-08] MEDS: carvediloL 6.25 MG TABLET PO SCH ×2 (08:03→21:26)
[2021-01-08] MEDS: ENOXAPARIN 80 MG/0.8 ML SYRINGE SUBCUT SCH ×2 (08:03→21:26)
[2021-01-08] MEDS: ASPIRIN EC 81 MG TABLET PO SCH (08:03)
[2021-01-08] MEDS: FUROSEMIDE 40 MG/4 ML VIAL IV SCH (08:28)
[2021-01-08] MEDS: DIGOXIN 0.5 MG/2 ML AMP IV SCH (08:29)
[2021-01-08] MEDS: LACTATED RINGERS 1,000 ML IV SCH (08:29)
[2021-01-08] MEDS: DILTIAZEM INJ 100 MG in SODIUM CHLORIDE 0.9% 100 ML IV SCH (09:29)
[2021-01-08] MEDS: DILTIAZEM 30 MG TABLET PO SCH ×3 (09:29→21:25)
[2021-01-08] MEDS: MIDAZOLAM 100 MG in SODIUM CHLORIDE 0.9% 80 ML IV PRN (10:15)
[2021-01-08] MEDS: CHOLECALCIFEROL 5,000 UNIT TABLET PO SCH (14:06)
[2021-01-08] MEDS: ACETAMINOPHEN 325 MG/10.15 ML UDCUP PO PRN (17:57)
[2021-01-08] MEDS: MORPHINE 2 MG/1 ML SYRINGE IV PRN (17:57)
[2021-01-08] MEDS: fentaNYL INJ 1,250 MCG in SODIUM CHLORIDE 0.9% 225 ML IV PRN (19:41)
[2021-01-08] MEDS: MELATONIN 3 MG TABLET PO SCH (21:00)
[2021-01-08] MEDS: ATORVASTATIN 80 MG TABLET PO SCH (21:26)
[2021-01-08] MEDS: SERTRALINE 50 MG TABLET PO SCH (21:26)
[2021-01-08] MEDS: FAMOTIDINE 20 MG/2 ML VIAL IV SCH (21:26)
[2021-01-08] MEDS: MONTELUKAST 10 MG TABLET PO SCH (21:26)
[2021-01-09] MEDS: methylPREDNISolone SOD SUC 40 MG/1 ML VIAL IV SCH ×4 (04:17→21:07)
[2021-01-09 04:53] LABS: ABG Base Excess 4.8 MMOL/L (-2.5-2.5); ABG PCO2 62.7 MM HG (35-48); ABG PH 7.326 (7.35-7.45); ABG PO2 72.1 MM HG (80-95); ABG TCO2 33.9 MMOL/L (23-27); Allen Test Positive; Pt O2 Delivery Device Ventilator
[2021-01-09] MEDS: INSULIN LISPRO 100 UNIT/ML SUBCUT SCH ×4 (05:11→23:57)
[2021-01-09 05:18] LABS: Basophils % 0.1 % (0.0-0.8); Hematocrit 31.2 VOL% (42.0-52.0); Hemoglobin 9.7 GM/DL (14.0-18.0); Immature Granulocytes % 0.7 %; Immature Granulocytes Absolute 0.11 #; Lymphocytes # 0.2 10*3/uL (1.4-4.0); Lymphocytes % 0.9 % (21.2-54.2); Mean Corpuscular HGB Conc 31.1 GM/DL (32-36); Mean Platelet Volume 13.3 FL (9.6-12.0); Monocytes % 2.3 % (1.7-12.7); Red Blood Count 3.25 MC/CUMM (3.8-5.5); Red Cell Distribution Width 15.9 % (9.3-17.3)
[2021-01-09 05:23] LABS: INR 1.3
[2021-01-09 05:38] LABS: Platelet Count 104 T/CUMM (130-400); White Blood Count 16.4 T/CUMM (4-12)
[2021-01-09 05:39] LABS: Osmolality,Calculated 326.1 MOS/KG (273-304); Potassium 4.6 MMOL/L (3.5-5.1)
[2021-01-09 05:42] LABS: Albumin 2.4 G/DL (3.4-5.0); Bilirubin,Total 0.9 MG/DL (0.20-1.00); Osmolality,Calculated 328.9 MOS/KG (273-304); Potassium 4.6 MMOL/L (3.5-5.1); Total Protein 5.4 G/DL (6.4-8.2)
[2021-01-09] MEDS: LEVOTHYROXINE 50 MCG TABLET PO SCH (06:01)
[2021-01-09 06:15] LABS: Anisocytosis 2+; Band Neutrophils 8 % (0-10); Burr Cells 1+; Lymphocytes 1 % (20-55); Ovalocytes 1+; Platelet Estimate Adequate; Poikilocytosis 1+; Segmented Neutrophils 89 % (50-85); Smudge Cells Few; Total Cells Counted 100
[2021-01-09 06:16] LABS: Macrocytosis 1+; Tear Drop Cells Few
[2021-01-09] MEDS: MORPHINE 2 MG/1 ML SYRINGE IV PRN (08:17)
[2021-01-09] MEDS: MIDAZOLAM 100 MG in SODIUM CHLORIDE 0.9% 80 ML IV PRN ×2 (08:51→20:56)
[2021-01-09] MEDS: FAMOTIDINE 20 MG/2 ML VIAL IV SCH ×2 (08:59→20:41)
[2021-01-09] MEDS: QUEtiapine 25 MG TABLET PO SCH ×2 (08:59→20:40)
[2021-01-09] MEDS: ASPIRIN CHEW 81 MG TABLET PO SCH (08:59)
[2021-01-09] MEDS: ENOXAPARIN 80 MG/0.8 ML SYRINGE SUBCUT SCH ×2 (08:59→20:40)
[2021-01-09] MEDS: carvediloL 6.25 MG TABLET PO SCH ×2 (08:59→20:40)
[2021-01-09] MEDS: DIGOXIN 0.5 MG/2 ML AMP IV SCH (08:59)
[2021-01-09] MEDS: DILTIAZEM 30 MG TABLET PO SCH (08:59)
[2021-01-09] MEDS: ASCORBIC ACID 500 MG TABLET PO SCH (09:00)
[2021-01-09] MEDS: CHOLECALCIFEROL 5,000 UNIT TABLET PO SCH (09:07)
[2021-01-09] MEDS: CETIRIZINE 10 MG TABLET PO SCH (09:08)
[2021-01-09] MEDS: ZINC GLUCONATE 50 MG TABLET PO SCH (09:08)
[2021-01-09] MEDS ORDERED: LACTATED RINGERS 500 ML IV ONE (09:09)
[2021-01-09] MEDS: PHENYLEPHRINE DRIP 40 MG/250 ML PREMIX IV PRN ×5 (09:40→21:55)
[2021-01-09] MEDS: fentaNYL INJ 1,250 MCG in SODIUM CHLORIDE 0.9% 225 ML IV PRN (11:43)
[2021-01-09] MEDS ORDERED: LACTATED RINGERS 1,000 ML IV ONE (14:10)
[2021-01-09] MEDS: LACTATED RINGERS 1,000 ML IV SCH (15:10)
[2021-01-09] MEDS: MONTELUKAST 10 MG TABLET PO SCH (20:39)
[2021-01-09] MEDS: SERTRALINE 50 MG TABLET PO SCH (20:39)
[2021-01-09] MEDS: MELATONIN 3 MG TABLET PO SCH (20:40)
[2021-01-09] MEDS: ATORVASTATIN 80 MG TABLET PO SCH (20:40)
[2021-01-09] MEDS: ACETAMINOPHEN 325 MG/10.15 ML UDCUP PO PRN (20:57)
[2021-01-10] MEDS: PHENYLEPHRINE DRIP 40 MG/250 ML PREMIX IV PRN ×5 (00:18→21:41)
[2021-01-10] MEDS: fentaNYL INJ 1,250 MCG in SODIUM CHLORIDE 0.9% 225 ML IV PRN ×2 (00:27→18:08)
[2021-01-10] MEDS: LACTATED RINGERS 1,000 ML IV SCH ×2 (01:54→11:10)
[2021-01-10] MEDS: methylPREDNISolone SOD SUC 40 MG/1 ML VIAL IV SCH ×4 (03:45→21:15)
[2021-01-10 04:37] LABS: Basophils % 0.1 % (0.0-0.8); Hematocrit 30.4 VOL% (42.0-52.0); Hemoglobin 8.9 GM/DL (14.0-18.0); Immature Granulocytes % 0.5 %; Immature Granulocytes Absolute 0.12 #; Lymphocytes # 0.1 10*3/uL (1.4-4.0); Lymphocytes % 0.6 % (21.2-54.2); Mean Corpuscular HGB Conc 29.3 GM/DL (32-36); Mean Corpuscular Volume 99.7 FL (87-102); Mean Platelet Volume 13.5 FL (9.6-12.0); Monocytes % 1.6 % (1.7-12.7); Neutrophils % 97.2 % (38.7-73.9); Platelet Count 105 T/CUMM (130-400); Red Blood Count 3.05 MC/CUMM (3.8-5.5); Red Cell Distribution Width 16.1 % (9.3-17.3); White Blood Count 22.1 T/CUMM (4-12)
[2021-01-10 04:57] LABS: ABG Base Excess 1.3 MMOL/L (-2.5-2.5); ABG HCO3 25.5 MMOL/L (20-26); ABG Oxygen Saturation 96.3 % (95-100); ABG PO2 87.5 MM HG (80-95); ABG TCO2 28.3 MMOL/L (23-27); Allen Test Positive; Pt O2 Delivery Device Ventilator
[2021-01-10 04:58] LABS: Calcium 7.5 MG/DL (8.5-10.1); Osmolality,Calculated 329.4 MOS/KG (273-304); Potassium 5.1 MMOL/L (3.5-5.1)
[2021-01-10 05:00] LABS: ABG PCO2 70.6 MM HG (35-48)
[2021-01-10 05:01] LABS: Band Neutrophils 1 % (0-10); Hypochromasia Slight; Platelet Estimate Normal; Segmented Neutrophils 99 % (50-85); Total Cells Counted 100
[2021-01-10] MEDS: INSULIN LISPRO 100 UNIT/ML SUBCUT SCH ×3 (05:26→18:03)
[2021-01-10] MEDS: LEVOTHYROXINE 50 MCG TABLET PO SCH (05:36)
[2021-01-10] MEDS: DIGOXIN 0.5 MG/2 ML AMP IV SCH (08:29)
[2021-01-10] MEDS: CETIRIZINE 10 MG TABLET PO SCH (08:30)
[2021-01-10] MEDS: FAMOTIDINE 20 MG/2 ML VIAL IV SCH (08:30)
[2021-01-10] MEDS: ASCORBIC ACID 500 MG TABLET PO SCH (08:30)
[2021-01-10] MEDS: carvediloL 6.25 MG TABLET PO SCH ×2 (08:30→21:13)
[2021-01-10] MEDS: ZINC GLUCONATE 50 MG TABLET PO SCH (08:30)
[2021-01-10] MEDS: ASPIRIN CHEW 81 MG TABLET PO SCH (08:30)
[2021-01-10] MEDS: QUEtiapine 25 MG TABLET PO SCH ×2 (08:30→21:13)
[2021-01-10] MEDS: CHOLECALCIFEROL 5,000 UNIT TABLET PO SCH (08:30)
[2021-01-10] MEDS: POLYETHYLENE GLYCOL POWDER 17 GM PACK PO SCH (09:27)
[2021-01-10] MEDS: SODIUM CHLORIDE 0.45% 1,000 ML IV SCH ×2 (11:09→22:50)
[2021-01-10] MEDS: MEROPENEM 500 MG in SODIUM CHLORIDE 0.9% 100 ML IV SCH ×2 (11:27→18:14)
[2021-01-10] MEDS ORDERED: METOCLOPRAMIDE 10 MG/2 ML VIAL IV ONE ×2 (12:05→21:00)
[2021-01-10] MEDS: MIDAZOLAM 100 MG in SODIUM CHLORIDE 0.9% 80 ML IV PRN (13:50)
[2021-01-10] MEDS: SERTRALINE 50 MG TABLET PO SCH (21:13)
[2021-01-10] MEDS: ENOXAPARIN 80 MG/0.8 ML SYRINGE SUBCUT SCH (21:13)
[2021-01-10] MEDS: ATORVASTATIN 80 MG TABLET PO SCH (21:14)
[2021-01-10] MEDS: MONTELUKAST 10 MG TABLET PO SCH (21:14)
[2021-01-10] MEDS: MELATONIN 3 MG TABLET PO SCH (21:15)
[2021-01-11] MEDS: INSULIN LISPRO 100 UNIT/ML SUBCUT SCH ×4 (00:30→18:08)
[2021-01-11] MEDS: MEROPENEM 500 MG in SODIUM CHLORIDE 0.9% 100 ML IV SCH ×3 (02:02→18:08)
[2021-01-11] MEDS: PHENYLEPHRINE DRIP 40 MG/250 ML PREMIX IV PRN ×2 (03:55→10:23)
[2021-01-11] MEDS: MIDAZOLAM 100 MG in SODIUM CHLORIDE 0.9% 80 ML IV PRN (04:05)
[2021-01-11 04:17] LABS: ABG Base Excess 1.8 MMOL/L (-2.5-2.5); ABG HCO3 28.2 MMOL/L (20-26); ABG Oxygen Saturation 92.9 % (95-100); ABG PCO2 53.5 MM HG (35-48); ABG PH 7.339 (7.35-7.45); ABG PO2 73.1 MM HG (80-95); ABG TCO2 29.8 MMOL/L (23-27); Allen Test Positive; Pt O2 Delivery Device Ventilator
[2021-01-11] MEDS: methylPREDNISolone SOD SUC 40 MG/1 ML VIAL IV SCH ×2 (04:40→09:38)
[2021-01-11 05:24] LABS: Basophils % 0.1 % (0.0-0.8); Hematocrit 25.4 VOL% (42.0-52.0); Hemoglobin 7.6 GM/DL (14.0-18.0); Immature Granulocytes % 1.6 %; Immature Granulocytes Absolute 0.29 #; Lymphocytes # 0.1 10*3/uL (1.4-4.0); Lymphocytes % 0.7 % (21.2-54.2); Mean Corpuscular HGB Conc 29.9 GM/DL (32-36); Mean Corpuscular Volume 97.7 FL (87-102); Monocytes % 1.5 % (1.7-12.7); Neutrophils % 96.1 % (38.7-73.9); Red Cell Distribution Width 16.1 % (9.3-17.3); White Blood Count 18.2 T/CUMM (4-12)
[2021-01-11 05:31] LABS: Platelet Count 51 T/CUMM (130-400)
[2021-01-11 05:38] LABS: Calcium 7.7 MG/DL (8.5-10.1); Osmolality,Calculated 335.6 MOS/KG (273-304); Potassium 4.6 MMOL/L (3.5-5.1)
[2021-01-11] MEDS: LEVOTHYROXINE 50 MCG TABLET PO SCH (05:43)
[2021-01-11 06:08] LABS: Lymphocytes 2 % (20-55); Segmented Neutrophils 98 % (50-85); Total Cells Counted 100
[2021-01-11 06:09] LABS: Platelet Estimate Decreased
[2021-01-11] MEDS: ASPIRIN CHEW 81 MG TABLET PO SCH (08:19)
[2021-01-11] MEDS: CHOLECALCIFEROL 5,000 UNIT TABLET PO SCH (08:19)
[2021-01-11] MEDS: QUEtiapine 25 MG TABLET PO SCH ×2 (08:20→20:37)
[2021-01-11] MEDS: ASCORBIC ACID 500 MG TABLET PO SCH (08:20)
[2021-01-11] MEDS: POLYETHYLENE GLYCOL POWDER 17 GM PACK PO SCH (08:20)
[2021-01-11] MEDS: ZINC GLUCONATE 50 MG TABLET PO SCH (08:20)
[2021-01-11] MEDS: carvediloL 6.25 MG TABLET PO SCH ×2 (08:20→20:37)
[2021-01-11] MEDS: DIGOXIN 0.5 MG/2 ML AMP IV SCH (08:21)
[2021-01-11] MEDS: FAMOTIDINE 20 MG/2 ML VIAL IV SCH (08:21)
[2021-01-11] MEDS: CETIRIZINE 10 MG TABLET PO SCH (08:23)
[2021-01-11] MEDS: SODIUM CHLORIDE 0.45% 1,000 ML IV SCH ×2 (09:32)
[2021-01-11 10:39] LABS: Basophils % 0.1 % (0.0-0.8); Hematocrit 25.2 VOL% (42.0-52.0); Hemoglobin 7.8 GM/DL (14.0-18.0); Immature Granulocytes Absolute 0.37 #; Lymphocytes # 0.2 10*3/uL (1.4-4.0); Lymphocytes % 0.8 % (21.2-54.2); Mean Corpuscular Volume 96.2 FL (87-102); Monocytes % 1.3 % (1.7-12.7); Neutrophils % 95.8 % (38.7-73.9); Red Blood Count 2.62 MC/CUMM (3.8-5.5); Red Cell Distribution Width 16.4 % (9.3-17.3); White Blood Count 18.3 T/CUMM (4-12)
[2021-01-11 10:40] LABS: Platelet Count 55 T/CUMM (130-400)
[2021-01-11 10:59] LABS: Band Neutrophils 1 % (0-10); Hypochromasia Slight; Lymphocytes 1 % (20-55); Segmented Neutrophils 97 % (50-85); Total Cells Counted 100
[2021-01-11 11:00] LABS: Acanthocytes Few
[2021-01-11 11:01] LABS: Anisocytosis 1+; Burr Cells Slight
[2021-01-11 11:02] LABS: Ovalocytes Few; Platelet Estimate Decreased
[2021-01-11] MEDS: methylPREDNISolone SOD SUC 125 MG/2 ML VIAL IV SCH ×2 (11:22→21:34)
[2021-01-11] MEDS: MICAFUNGIN 100 MG in SODIUM CHLORIDE 0.9% 100 ML IV SCH (12:10)
[2021-01-11] MEDS: VANCOMYCIN INJ 1,250 MG in SODIUM CHLORIDE 0.9% 250 ML IV SCH (12:12)
[2021-01-11 14:47] LABS: Basophils % 0.1 % (0.0-0.8); Hematocrit 25.6 VOL% (42.0-52.0); Hemoglobin 7.6 GM/DL (14.0-18.0); Immature Granulocytes % 2.1 %; Immature Granulocytes Absolute 0.37 #; Lymphocytes # 0.2 10*3/uL (1.4-4.0); Lymphocytes % 0.9 % (21.2-54.2); Mean Corpuscular HGB Conc 29.7 GM/DL (32-36); Mean Corpuscular Volume 98.8 FL (87-102); Mean Platelet Volume 14.2 FL (9.6-12.0); Monocytes % 1.2 % (1.7-12.7); Neutrophils % 95.7 % (38.7-73.9); Platelet Count 60 T/CUMM (130-400); Red Blood Count 2.59 MC/CUMM (3.8-5.5); Red Cell Distribution Width 16.2 % (9.3-17.3); White Blood Count 17.5 T/CUMM (4-12)
[2021-01-11 15:00] LABS: INR 1.2
[2021-01-11 15:24] LABS: Anisocytosis 1+; Band Neutrophils 16 % (0-10); Burr Cells 1+; Platelet Estimate Decreased; Poikilocytosis 1+; Segmented Neutrophils 82 % (50-85); Total Cells Counted 100
[2021-01-11 15:25] LABS: Macrocytosis 1+; Spherocytes Few
[2021-01-11 15:37] LABS: % Iron Saturation 25.9 % (18-50); Ferritin 2852.6 ng/ml (26-388)
[2021-01-11] MEDS ORDERED: MICAFUNGIN 100 MG in SODIUM CHLORIDE 0.9% 100 ML IV ONE (16:09)
[2021-01-11 17:07] LABS: Folate 8.14 NG/ML (5.38-24.0)
[2021-01-11] MEDS: MONTELUKAST 10 MG TABLET PO SCH (20:37)
[2021-01-11] MEDS: ATORVASTATIN 80 MG TABLET PO SCH (20:38)
[2021-01-11] MEDS: SERTRALINE 50 MG TABLET PO SCH (20:38)
[2021-01-11] MEDS: MELATONIN 3 MG TABLET PO SCH (20:38)
[2021-01-12] MEDS: INSULIN LISPRO 100 UNIT/ML SUBCUT SCH ×4 (00:28→17:23)
[2021-01-12] MEDS: MEROPENEM 500 MG in SODIUM CHLORIDE 0.9% 100 ML IV SCH ×2 (02:07→09:35)
[2021-01-12] MEDS: fentaNYL INJ 1,250 MCG in SODIUM CHLORIDE 0.9% 225 ML IV PRN (02:09)
[2021-01-12 04:01] LABS: ABG Base Excess 1.1 MMOL/L (-2.5-2.5); ABG HCO3 25.4 MMOL/L (20-26); ABG PCO2 39.2 MM HG (35-48); ABG PH 7.422 (7.35-7.45)
[2021-01-12 05:21] LABS: Basophils % 0.1 % (0.0-0.8); Hemoglobin 7.1 GM/DL (14.0-18.0); Immature Granulocytes % 1.5 %; Immature Granulocytes Absolute 0.19 #; Lymphocytes # 0.1 10*3/uL (1.4-4.0); Lymphocytes % 0.9 % (21.2-54.2); Mean Corpuscular HGB Conc 30.9 GM/DL (32-36); Mean Corpuscular Volume 96.6 FL (87-102); Monocytes % 1.5 % (1.7-12.7); Red Blood Count 2.38 MC/CUMM (3.8-5.5); Red Cell Distribution Width 16.1 % (9.3-17.3); White Blood Count 12.3 T/CUMM (4-12)
[2021-01-12 05:26] LABS: Platelet Count 39 T/CUMM (130-400)
[2021-01-12] MEDS: LEVOTHYROXINE 50 MCG TABLET PO SCH (05:56)
[2021-01-12 05:59] LABS: Calcium 7.3 MG/DL (8.5-10.1); Osmolality,Calculated 333.9 MOS/KG (273-304); Potassium 4.7 MMOL/L (3.5-5.1)
[2021-01-12 06:02] LABS: Albumin 1.6 G/DL (3.4-5.0); Bilirubin,Total 0.8 MG/DL (0.20-1.00); Calcium 7.4 MG/DL (8.5-10.1); Osmolality,Calculated 337.7 MOS/KG (273-304); Potassium 4.8 MMOL/L (3.5-5.1); Total Protein 4.4 G/DL (6.4-8.2)
[2021-01-12] MEDS: MIDAZOLAM 100 MG in SODIUM CHLORIDE 0.9% 80 ML IV PRN (07:30)
[2021-01-12] MEDS ORDERED: SODIUM CHLORIDE 0.9% 1,000 ML IV PRN ×2 (07:49→15:54)
[2021-01-12 07:59] LABS: Band Neutrophils 1 % (0-10); Lymphocytes 1 % (20-55); Segmented Neutrophils 97 % (50-85); Total Cells Counted 100
[2021-01-12 08:00] LABS: Platelet Estimate Decreased; Polychromasia Slight
[2021-01-12] MEDS: ZINC GLUCONATE 50 MG TABLET PO SCH (08:43)
[2021-01-12] MEDS: CHOLECALCIFEROL 5,000 UNIT TABLET PO SCH (08:43)
[2021-01-12] MEDS: carvediloL 6.25 MG TABLET PO SCH ×2 (08:43→21:34)
[2021-01-12] MEDS: ASCORBIC ACID 500 MG TABLET PO SCH (08:43)
[2021-01-12] MEDS: CETIRIZINE 10 MG TABLET PO SCH (08:44)
[2021-01-12] MEDS: DIGOXIN 0.5 MG/2 ML AMP IV SCH (08:44)
[2021-01-12] MEDS: FAMOTIDINE 20 MG/2 ML VIAL IV SCH (08:45)
[2021-01-12] MEDS: POLYETHYLENE GLYCOL POWDER 17 GM PACK PO SCH (08:45)
[2021-01-12] MEDS: SODIUM CHLORIDE 0.45% 1,000 ML IV SCH ×2 (09:07→19:01)
[2021-01-12] MEDS: QUEtiapine 25 MG TABLET PO SCH (09:07)
[2021-01-12] MEDS: methylPREDNISolone SOD SUC 125 MG/2 ML VIAL IV SCH ×2 (09:34→21:36)
[2021-01-12] MEDS: DILTIAZEM 30 MG TABLET PO SCH ×3 (10:20→21:34)
[2021-01-12] MEDS: VANCOMYCIN INJ 1,250 MG in SODIUM CHLORIDE 0.9% 250 ML IV SCH (12:47)
[2021-01-12] MEDS: MICAFUNGIN 100 MG in SODIUM CHLORIDE 0.9% 100 ML IV SCH (14:30)
[2021-01-12] MEDS ORDERED: MICAFUNGIN 100 MG in SODIUM CHLORIDE 0.9% 100 ML IV ONE (16:09)
[2021-01-12] MEDS: DEXMEDETOMIDINE 200 MCG in SODIUM CHLORIDE 0.9% 48 ML IV PRN ×2 (17:30→21:38)
[2021-01-12 18:15] LABS: Basophils % 0.1 % (0.0-0.8); Hematocrit 28.6 VOL% (42.0-52.0); Hemoglobin 9.1 GM/DL (14.0-18.0); Immature Granulocytes % 1.5 %; Immature Granulocytes Absolute 0.19 #; Lymphocytes # 0.1 10*3/uL (1.4-4.0); Lymphocytes % 0.7 % (21.2-54.2); Mean Corpuscular HGB Conc 31.8 GM/DL (32-36); Mean Corpuscular Volume 92.3 FL (87-102); Monocytes % 1.3 % (1.7-12.7); Neutrophils % 96.4 % (38.7-73.9); Platelet Count 40 T/CUMM (130-400); White Blood Count 12.7 T/CUMM (4-12)
[2021-01-12] MEDS: CISATRACURIUM 200 MG in SODIUM CHLORIDE 0.9% 180 ML IV PRN (21:03)
[2021-01-12 21:12] LABS: Burr Cells 2+; Lymphocytes 3 % (20-55); Ovalocytes Few; Platelet Estimate Decreased; Schistocytes 1+; Segmented Neutrophils 97 % (50-85); Total Cells Counted 100
[2021-01-12] MEDS: MONTELUKAST 10 MG TABLET PO SCH (21:34)
[2021-01-12] MEDS: SERTRALINE 50 MG TABLET PO SCH (21:35)
[2021-01-12] MEDS: ATORVASTATIN 80 MG TABLET PO SCH (21:35)
[2021-01-12] MEDS: MELATONIN 3 MG TABLET PO SCH (21:54)
[2021-01-13] MEDS: INSULIN LISPRO 100 UNIT/ML SUBCUT SCH ×4 (00:41→18:23)
[2021-01-13] MEDS: MIDAZOLAM 100 MG in SODIUM CHLORIDE 0.9% 80 ML IV PRN ×2 (03:37→17:43)
[2021-01-13 04:05] LABS: ABG Base Excess -2.9 MMOL/L (-2.5-2.5); ABG HCO3 24.5 MMOL/L (20-26); ABG Oxygen Saturation 93.5 % (95-100); ABG PCO2 55.5 MM HG (35-48); ABG PH 7.263 (7.35-7.45); ABG PO2 79.8 MM HG (80-95); ABG TCO2 26.2 MMOL/L (23-27)
[2021-01-13] MEDS: DEXMEDETOMIDINE 200 MCG in SODIUM CHLORIDE 0.9% 48 ML IV PRN (05:14)
[2021-01-13] MEDS: fentaNYL INJ 1,250 MCG in SODIUM CHLORIDE 0.9% 225 ML IV PRN ×2 (05:15→17:23)
[2021-01-13 05:46] LABS: Basophils % 0.1 % (0.0-0.8); Hematocrit 29.5 VOL% (42.0-52.0); Hemoglobin 9.5 GM/DL (14.0-18.0); Immature Granulocytes Absolute 0.12 #; Lymphocytes # 0.1 10*3/uL (1.4-4.0); Lymphocytes % 0.7 % (21.2-54.2); Mean Corpuscular HGB Conc 32.2 GM/DL (32-36); Mean Corpuscular Volume 93.4 FL (87-102); Monocytes % 1.6 % (1.7-12.7); Neutrophils % 96.6 % (38.7-73.9); Red Blood Count 3.16 MC/CUMM (3.8-5.5); Red Cell Distribution Width 16.1 % (9.3-17.3); White Blood Count 12.4 T/CUMM (4-12)
[2021-01-13 05:57] LABS: Platelet Count 36 T/CUMM (130-400)
[2021-01-13 06:34] LABS: Anisocytosis 2+; Band Neutrophils 8 % (0-10); Burr Cells Few; Macrocytosis Slight; Ovalocytes Few; Platelet Estimate Decreased; Poikilocytosis 1+; Segmented Neutrophils 92 % (50-85); Spherocytes 1+; Total Cells Counted 100
[2021-01-13] MEDS: LEVOTHYROXINE 50 MCG TABLET PO SCH (06:40)
[2021-01-13] MEDS: SODIUM CHLORIDE 0.45% 1,000 ML IV SCH (07:08)
[2021-01-13] MEDS: CISATRACURIUM 200 MG in SODIUM CHLORIDE 0.9% 180 ML IV PRN ×2 (08:14→18:23)
[2021-01-13] MEDS: methylPREDNISolone SOD SUC 125 MG/2 ML VIAL IV SCH ×2 (08:36→18:22)
[2021-01-13 08:54] LABS: Albumin 1.9 G/DL (3.4-5.0); Bilirubin,Total 0.6 MG/DL (0.20-1.00); Calcium 7.4 MG/DL (8.5-10.1); Osmolality,Calculated 337.3 MOS/KG (273-304); Potassium 5.7 MMOL/L (3.5-5.1); Total Protein 4.5 G/DL (6.4-8.2)
[2021-01-13] MEDS: DILTIAZEM 30 MG TABLET PO SCH ×3 (08:55→21:15)
[2021-01-13] MEDS: FAMOTIDINE 20 MG/2 ML VIAL IV SCH (08:55)
[2021-01-13] MEDS: carvediloL 6.25 MG TABLET PO SCH ×2 (08:55→21:15)
[2021-01-13] MEDS: POLYETHYLENE GLYCOL POWDER 17 GM PACK PO SCH (08:55)
[2021-01-13] MEDS: ZINC GLUCONATE 50 MG TABLET PO SCH (08:56)
[2021-01-13] MEDS: CETIRIZINE 10 MG TABLET PO SCH (08:56)
[2021-01-13] MEDS: ASCORBIC ACID 500 MG TABLET PO SCH (08:56)
[2021-01-13] MEDS: CHOLECALCIFEROL 5,000 UNIT TABLET PO SCH (08:56)
[2021-01-13] MEDS ORDERED: QUEtiapine 25 MG TABLET PO SCH (09:00)
[2021-01-13] MEDS ORDERED: LINEZOLID INJ 600 MG/300 ML PREMIX IV SCH (09:00)
[2021-01-13] MEDS ORDERED: DIGOXIN 0.5 MG/2 ML AMP IV SCH (09:00)
[2021-01-13] MEDS: FLUCONAZOLE INJ 200 MG/100 ML PREMIX IV SCH (10:45)
[2021-01-13] MEDS ORDERED: SODIUM POLYSTYRENE SULFATE 15 GM/60 ML BOTTLE PO ONE (12:39)
[2021-01-13] MEDS: MONTELUKAST 10 MG TABLET PO SCH (21:15)
[2021-01-13] MEDS: ATORVASTATIN 80 MG TABLET PO SCH (21:15)
[2021-01-14] MEDS: methylPREDNISolone SOD SUC 125 MG/2 ML VIAL IV SCH ×4 (00:40→23:39)
[2021-01-14] MEDS: INSULIN LISPRO 100 UNIT/ML SUBCUT SCH ×5 (00:40→23:39)
[2021-01-14 04:26] LABS: ABG Base Excess -1.3 MMOL/L (-2.5-2.5); ABG Oxygen Saturation 91.2 % (95-100); ABG PCO2 56.8 MM HG (35-48); ABG PH 7.279 (7.35-7.45); ABG PO2 66.9 MM HG (80-95); ABG TCO2 27.8 MMOL/L (23-27); Allen Test Positive; Pt O2 Delivery Device Ventilator
[2021-01-14] MEDS: CISATRACURIUM 200 MG in SODIUM CHLORIDE 0.9% 180 ML IV PRN ×3 (04:35→22:48)
[2021-01-14] MEDS: fentaNYL INJ 1,250 MCG in SODIUM CHLORIDE 0.9% 225 ML IV PRN ×3 (04:50→23:01)
[2021-01-14] MEDS: LEVOTHYROXINE 50 MCG TABLET PO SCH (06:04)
[2021-01-14 06:16] LABS: Basophils % 0.1 % (0.0-0.8); Hematocrit 31.5 VOL% (42.0-52.0); Hemoglobin 9.8 GM/DL (14.0-18.0); Immature Granulocytes % 0.4 %; Immature Granulocytes Absolute 0.06 #; Lymphocytes # 0.2 10*3/uL (1.4-4.0); Mean Corpuscular HGB Conc 31.1 GM/DL (32-36); Mean Platelet Volume 13.9 FL (9.6-12.0); Monocytes % 1.1 % (1.7-12.7); Neutrophils % 97.4 % (38.7-73.9); Platelet Count 62 T/CUMM (130-400); Red Blood Count 3.35 MC/CUMM (3.8-5.5); Red Cell Distribution Width 15.9 % (9.3-17.3); White Blood Count 14.6 T/CUMM (4-12)
[2021-01-14 06:50] LABS: Calcium 7.7 MG/DL (8.5-10.1); Ferritin 1835.4 ng/ml (26-388); Osmolality,Calculated 337.1 MOS/KG (273-304); Potassium 5.7 MMOL/L (3.5-5.1)
[2021-01-14 07:18] LABS: Anisocytosis 1+; Band Neutrophils 3 % (0-10); Burr Cells Few; Platelet Estimate Decreased; Segmented Neutrophils 95 % (50-85); Total Cells Counted 100
[2021-01-14 07:19] LABS: Spherocytes 1+; Tear Drop Cells Few
[2021-01-14] MEDS: POLYETHYLENE GLYCOL POWDER 17 GM PACK PO SCH (08:25)
[2021-01-14] MEDS: carvediloL 6.25 MG TABLET PO SCH ×2 (08:25→20:04)
[2021-01-14] MEDS: ASCORBIC ACID 500 MG TABLET PO SCH (08:25)
[2021-01-14] MEDS: FAMOTIDINE 20 MG/2 ML VIAL IV SCH (08:26)
[2021-01-14] MEDS ORDERED: SODIUM POLYSTYRENE SULFATE 15 GM/60 ML BOTTLE PO ONE (08:57)
[2021-01-14] MEDS: DILTIAZEM 30 MG TABLET PO SCH ×3 (09:11→20:04)
[2021-01-14] MEDS: CHOLECALCIFEROL 5,000 UNIT TABLET PO SCH (09:12)
[2021-01-14] MEDS: ZINC GLUCONATE 50 MG TABLET PO SCH (09:12)
[2021-01-14] MEDS: CETIRIZINE 10 MG TABLET PO SCH (09:12)
[2021-01-14] MEDS: MIDAZOLAM 100 MG in SODIUM CHLORIDE 0.9% 80 ML IV PRN (09:13)
[2021-01-14] MEDS: FLUCONAZOLE INJ 200 MG/100 ML PREMIX IV SCH (10:40)
[2021-01-14] MEDS: hydroCHLOROthiazide 25 MG TABLET PO SCH (11:09)
[2021-01-14] MEDS: ALBUMIN 25% 12.5 GM/50 ML VIAL IV SCH ×2 (11:30→18:21)
[2021-01-14] MEDS: METOCLOPRAMIDE 10 MG/2 ML VIAL IV SCH ×3 (12:08→23:39)
[2021-01-14] MEDS: FUROSEMIDE 100 MG/10 ML VIAL IV SCH (15:58)
[2021-01-14] MEDS: MONTELUKAST 10 MG TABLET PO SCH (20:04)
[2021-01-14] MEDS: ATORVASTATIN 80 MG TABLET PO SCH (20:04)
[2021-01-15] MEDS: MIDAZOLAM 100 MG in SODIUM CHLORIDE 0.9% 80 ML IV PRN (01:13)
[2021-01-15] MEDS: ALBUMIN 25% 12.5 GM/50 ML VIAL IV SCH ×2 (01:43→10:32)
[2021-01-15 05:09] LABS: Basophils % 0.1 % (0.0-0.8); Hematocrit 28.1 VOL% (42.0-52.0); Hemoglobin 8.5 GM/DL (14.0-18.0); Immature Granulocytes Absolute 0.16 #; Lymphocytes # 0.2 10*3/uL (1.4-4.0); Lymphocytes % 1.3 % (21.2-54.2); Mean Corpuscular HGB Conc 30.2 GM/DL (32-36); Mean Corpuscular Volume 96.2 FL (87-102); Mean Platelet Volume 13.4 FL (9.6-12.0); Monocytes % 1.7 % (1.7-12.7); Neutrophils % 95.9 % (38.7-73.9); Platelet Count 52 T/CUMM (130-400); Red Blood Count 2.92 MC/CUMM (3.8-5.5); Red Cell Distribution Width 15.8 % (9.3-17.3); White Blood Count 15.6 T/CUMM (4-12)
[2021-01-15 05:18] LABS: ABG Base Excess -1.6 MMOL/L (-2.5-2.5); ABG Oxygen Saturation 90.6 % (95-100); ABG PCO2 60.3 MM HG (35-48); ABG PH 7.253 (7.35-7.45); ABG PO2 65.5 MM HG (80-95); ABG TCO2 27.9 MMOL/L (23-27)
[2021-01-15 05:19] LABS: Allen Test Positive; Pt O2 Delivery Device Ventilator
[2021-01-15 05:22] LABS: Calcium 7.9 MG/DL (8.5-10.1); Osmolality,Calculated 347.7 MOS/KG (273-304); Potassium 5.7 MMOL/L (3.5-5.1)
[2021-01-15] MEDS: INSULIN LISPRO 100 UNIT/ML SUBCUT SCH ×3 (05:53→18:36)
[2021-01-15] MEDS: LEVOTHYROXINE 50 MCG TABLET PO SCH (06:06)
[2021-01-15 06:29] LABS: Band Neutrophils 4 % (0-10); Lymphocytes 2 % (20-55); Platelet Estimate Decreased; Segmented Neutrophils 93 % (50-85); Total Cells Counted 100
[2021-01-15 06:30] LABS: Anisocytosis 1+; Burr Cells 1+; Ovalocytes Few; Poikilocytosis 1+
[2021-01-15 06:31] LABS: Macrocytosis 1+; Spherocytes Few
[2021-01-15] MEDS: fentaNYL INJ 1,250 MCG in DEXTROSE 5% 225 ML IV PRN ×2 (07:14→15:01)
[2021-01-15] MEDS: DEXTROSE 5% IV PRN ×2 (07:24→16:00)
[2021-01-15] MEDS: CISATRACURIUM IV PRN ×2 (07:24→16:00)
[2021-01-15] MEDS: DILTIAZEM 30 MG TABLET PO SCH ×3 (08:47→20:40)
[2021-01-15] MEDS: methylPREDNISolone SOD SUC 125 MG/2 ML VIAL IV SCH ×2 (08:47→16:36)
[2021-01-15] MEDS: FUROSEMIDE 100 MG/10 ML VIAL IV SCH ×2 (08:47→16:35)
[2021-01-15] MEDS: hydroCHLOROthiazide 25 MG TABLET PO SCH (08:47)
[2021-01-15] MEDS: carvediloL 6.25 MG TABLET PO SCH (08:47)
[2021-01-15] MEDS: FAMOTIDINE 20 MG/2 ML VIAL IV SCH (08:48)
[2021-01-15] MEDS: CETIRIZINE 10 MG TABLET PO SCH (08:48)
[2021-01-15] MEDS: ZINC GLUCONATE 50 MG TABLET PO SCH (08:48)
[2021-01-15] MEDS: ASCORBIC ACID 500 MG TABLET PO SCH (08:48)
[2021-01-15] MEDS: CHOLECALCIFEROL 5,000 UNIT TABLET PO SCH (08:48)
[2021-01-15] MEDS: POLYETHYLENE GLYCOL POWDER 17 GM PACK PO SCH (08:48)
[2021-01-15] MEDS ORDERED: SODIUM POLYSTYRENE SULFATE 15 GM/60 ML BOTTLE PO ONE (10:30)
[2021-01-15] MEDS: FLUCONAZOLE INJ 200 MG/100 ML PREMIX IV SCH (11:04)
[2021-01-15] MEDS ORDERED: BISACODYL 10 MG SUPP RECTAL ONE (12:00)
[2021-01-15] MEDS: MIDAZOLAM 100 MG in DEXTROSE 5% 80 ML IV PRN (15:03)
[2021-01-15] MEDS: ATORVASTATIN 80 MG TABLET PO SCH (20:40)
[2021-01-15] MEDS: carvediloL 12.5 MG TABLET NG SCH (20:40)
[2021-01-15] MEDS: MONTELUKAST 10 MG TABLET PO SCH (20:40)
[2021-01-16] MEDS: fentaNYL INJ 1,250 MCG in DEXTROSE 5% 225 ML IV PRN ×2 (00:17→07:23)
[2021-01-16] MEDS: INSULIN LISPRO 100 UNIT/ML SUBCUT SCH ×4 (00:17→18:10)
[2021-01-16] MEDS: methylPREDNISolone SOD SUC 125 MG/2 ML VIAL IV SCH ×3 (00:18→17:39)
[2021-01-16] MEDS: DEXTROSE 5% IV PRN (01:29)
[2021-01-16] MEDS: CISATRACURIUM IV PRN (01:29)
[2021-01-16 04:41] LABS: ABG Base Excess -1.2 MMOL/L (-2.5-2.5); ABG HCO3 23.2 MMOL/L (20-26); ABG Oxygen Saturation 84.3 % (95-100); ABG PCO2 67.4 MM HG (35-48); ABG PH 7.223 (7.35-7.45); ABG PO2 55.1 MM HG (80-95); ABG TCO2 26.1 MMOL/L (23-27)
[2021-01-16 05:43] LABS: Basophils % 0.1 % (0.0-0.8); Hematocrit 27.6 VOL% (42.0-52.0); Hemoglobin 8.7 GM/DL (14.0-18.0); Immature Granulocytes Absolute 0.32 #; Lymphocytes # 0.1 10*3/uL (1.4-4.0); Lymphocytes % 0.9 % (21.2-54.2); Mean Corpuscular HGB Conc 31.5 GM/DL (32-36); Mean Corpuscular Volume 95.8 FL (87-102); Mean Platelet Volume 14.4 FL (9.6-12.0); Monocytes % 2.1 % (1.7-12.7); Neutrophils % 94.9 % (38.7-73.9); Platelet Count 42 T/CUMM (130-400); Red Blood Count 2.88 MC/CUMM (3.8-5.5); Red Cell Distribution Width 15.6 % (9.3-17.3); White Blood Count 15.7 T/CUMM (4-12)
[2021-01-16] MEDS: MIDAZOLAM 100 MG in DEXTROSE 5% 80 ML IV PRN ×2 (06:05→15:00)
[2021-01-16 06:07] LABS: Acanthocytes Few; Hypochromasia Slight; Lymphocytes 1 % (20-55); Microcytosis 1+; Ovalocytes Few; Segmented Neutrophils 97 % (50-85); Total Cells Counted 100
[2021-01-16 06:08] LABS: Platelet Estimate Decreased
[2021-01-16 06:15] LABS: Albumin 2.5 G/DL (3.4-5.0); Bilirubin,Total 0.7 MG/DL (0.20-1.00); Calcium 7.8 MG/DL (8.5-10.1); Osmolality,Calculated 347.9 MOS/KG (273-304); Potassium 4.3 MMOL/L (3.5-5.1); Total Protein 5.2 G/DL (6.4-8.2)
[2021-01-16] MEDS: LEVOTHYROXINE 50 MCG TABLET PO SCH (06:16)
[2021-01-16] MEDS: CHOLECALCIFEROL 5,000 UNIT TABLET PO SCH (08:19)
[2021-01-16] MEDS: hydroCHLOROthiazide 25 MG TABLET PO SCH (08:19)
[2021-01-16] MEDS: carvediloL 12.5 MG TABLET NG SCH ×2 (08:19→20:43)
[2021-01-16] MEDS: CETIRIZINE 10 MG TABLET PO SCH (08:19)
[2021-01-16] MEDS: ZINC GLUCONATE 50 MG TABLET PO SCH (08:20)
[2021-01-16] MEDS: DILTIAZEM 30 MG TABLET PO SCH (08:20)
[2021-01-16] MEDS: FAMOTIDINE 20 MG/2 ML VIAL IV SCH (08:20)
[2021-01-16] MEDS: POLYETHYLENE GLYCOL POWDER 17 GM PACK PO SCH (09:34)
[2021-01-16] MEDS: ASCORBIC ACID 500 MG TABLET PO SCH (09:35)
[2021-01-16] MEDS: FLUCONAZOLE INJ 200 MG/100 ML PREMIX IV SCH (10:41)
[2021-01-16] MEDS: DESITIN 4OZ/NYSTATIN 15 GRAM MIXTURE PASTE TOP SCH ×2 (10:41→20:43)
[2021-01-16] MEDS: DILTIAZEM 60 MG TABLET PO SCH ×2 (11:44→17:39)
[2021-01-16] MEDS: METOCLOPRAMIDE 10 MG/2 ML VIAL IV SCH ×2 (11:45→17:42)
[2021-01-16] MEDS: fentaNYL INJ 2,500 MCG in SODIUM CHLORIDE 0.9% 75 ML IV PRN (15:25)
[2021-01-16] MEDS: ATORVASTATIN 80 MG TABLET PO SCH (20:43)
[2021-01-16] MEDS: ACETAMINOPHEN 325 MG/10.15 ML UDCUP PO PRN (20:43)
[2021-01-16] MEDS: MONTELUKAST 10 MG TABLET PO SCH (20:43)
[2021-01-16 23:31] LABS: Fungitell Quantitative Value 108 pg/mL (<60 pg/mL)
[2021-01-17] MEDS: METOCLOPRAMIDE 10 MG/2 ML VIAL IV SCH ×4 (00:16→18:15)
[2021-01-17] MEDS: DILTIAZEM 60 MG TABLET PO SCH ×4 (00:17→18:14)
[2021-01-17] MEDS: INSULIN LISPRO 100 UNIT/ML SUBCUT SCH ×4 (00:17→18:15)
[2021-01-17] MEDS: methylPREDNISolone SOD SUC 125 MG/2 ML VIAL IV SCH ×3 (00:54→17:55)
[2021-01-17] MEDS: fentaNYL INJ 2,500 MCG in SODIUM CHLORIDE 0.9% 75 ML IV PRN ×2 (02:32→13:25)
[2021-01-17 02:57] LABS: ABG HCO3 26.1 MMOL/L (20-26); ABG Oxygen Saturation 92.2 % (95-100); ABG PCO2 68.2 MM HG (35-48); ABG PH 7.256 (7.35-7.45); ABG PO2 73.4 MM HG (80-95); ABG TCO2 28.8 MMOL/L (23-27)
[2021-01-17] MEDS: MIDAZOLAM 100 MG in DEXTROSE 5% 80 ML IV PRN ×2 (04:28→17:30)
[2021-01-17 04:34] LABS: Hematocrit 25.6 VOL% (42.0-52.0); Hemoglobin 7.7 GM/DL (14.0-18.0); Immature Granulocytes % 1.1 %; Immature Granulocytes Absolute 0.16 #; Lymphocytes # 0.1 10*3/uL (1.4-4.0); Lymphocytes % 0.8 % (21.2-54.2); Mean Corpuscular HGB Conc 30.1 GM/DL (32-36); Mean Corpuscular Volume 96.2 FL (87-102); Mean Platelet Volume 13.6 FL (9.6-12.0); Monocytes % 1.5 % (1.7-12.7); Neutrophils % 96.6 % (38.7-73.9); Red Blood Count 2.66 MC/CUMM (3.8-5.5); Red Cell Distribution Width 15.7 % (9.3-17.3); White Blood Count 14.3 T/CUMM (4-12)
[2021-01-17 04:42] LABS: Platelet Count 38 T/CUMM (130-400)
[2021-01-17 04:51] LABS: Band Neutrophils 1 % (0-10); Lymphocytes 2 % (20-55); Segmented Neutrophils 96 % (50-85); Total Cells Counted 100
[2021-01-17 04:52] LABS: Hypochromasia 1+; Microcytosis 1+; Ovalocytes Slight; Platelet Estimate Decreased
[2021-01-17 04:56] LABS: Calcium 7.9 MG/DL (8.5-10.1); Osmolality,Calculated 347.4 MOS/KG (273-304); Potassium 3.8 MMOL/L (3.5-5.1)
[2021-01-17] MEDS: LEVOTHYROXINE 50 MCG TABLET PO SCH (06:16)
[2021-01-17] MEDS: ASCORBIC ACID 500 MG TABLET PO SCH (08:21)
[2021-01-17] MEDS: carvediloL 12.5 MG TABLET NG SCH ×2 (08:21→20:47)
[2021-01-17] MEDS: POLYETHYLENE GLYCOL POWDER 17 GM PACK PO SCH (08:21)
[2021-01-17] MEDS: ZINC GLUCONATE 50 MG TABLET PO SCH (08:21)
[2021-01-17] MEDS: CETIRIZINE 10 MG TABLET PO SCH (08:21)
[2021-01-17] MEDS: CHOLECALCIFEROL 5,000 UNIT TABLET PO SCH (08:21)
[2021-01-17] MEDS: DESITIN 4OZ/NYSTATIN 15 GRAM MIXTURE PASTE TOP SCH (08:22)
[2021-01-17] MEDS: FAMOTIDINE 20 MG/2 ML VIAL IV SCH (08:22)
[2021-01-17] MEDS ORDERED: SODIUM CHLORIDE 0.9% 1,000 ML IV PRN (09:34)
[2021-01-17] MEDS: FLUCONAZOLE INJ 200 MG/100 ML PREMIX IV SCH (10:55)
[2021-01-17] MEDS: ATORVASTATIN 80 MG TABLET PO SCH (20:46)
[2021-01-17] MEDS: MONTELUKAST 10 MG TABLET PO SCH (20:46)
[2021-01-17] MEDS: DEXTROSE 5% 1,000 ML IV SCH (20:48)
[2021-01-18] MEDS: METOCLOPRAMIDE 10 MG/2 ML VIAL IV SCH ×4 (00:03→18:03)
[2021-01-18] MEDS: INSULIN LISPRO 100 UNIT/ML SUBCUT SCH ×4 (00:03→18:04)
[2021-01-18] MEDS: DILTIAZEM 60 MG TABLET PO SCH ×3 (00:03→13:12)
[2021-01-18] MEDS: fentaNYL INJ 2,500 MCG in SODIUM CHLORIDE 0.9% 75 ML IV PRN ×2 (00:45→10:23)
[2021-01-18] MEDS: methylPREDNISolone SOD SUC 125 MG/2 ML VIAL IV SCH ×3 (01:20→18:14)
[2021-01-18 03:44] LABS: Basophils % 0.1 % (0.0-0.8); Hematocrit 23.8 VOL% (42.0-52.0); Hemoglobin 7.2 GM/DL (14.0-18.0); Immature Granulocytes Absolute 0.15 #; Lymphocytes # 0.1 10*3/uL (1.4-4.0); Lymphocytes % 0.7 % (21.2-54.2); Mean Corpuscular HGB Conc 30.3 GM/DL (32-36); Mean Corpuscular Volume 96.7 FL (87-102); Mean Platelet Volume 12.5 FL (9.6-12.0); Monocytes % 1.6 % (1.7-12.7); Neutrophils % 96.6 % (38.7-73.9); Platelet Count 58 T/CUMM (130-400); Red Blood Count 2.46 MC/CUMM (3.8-5.5); Red Cell Distribution Width 15.2 % (9.3-17.3); White Blood Count 14.7 T/CUMM (4-12)
[2021-01-18 03:52] LABS: Calcium 7.8 MG/DL (8.5-10.1); Osmolality,Calculated 348.4 MOS/KG (273-304); Potassium 3.7 MMOL/L (3.5-5.1)
[2021-01-18 04:03] LABS: Hypochromasia 1+; Lymphocytes 1 % (20-55); Microcytosis 1+; Platelet Estimate Decreased; Segmented Neutrophils 95 % (50-85); Total Cells Counted 100
[2021-01-18] MEDS: DESITIN 4OZ/NYSTATIN 15 GRAM MIXTURE PASTE TOP SCH ×3 (04:19→21:12)
[2021-01-18 05:23] LABS: ABG Base Excess 1.8 MMOL/L (-2.5-2.5); ABG HCO3 30.2 MMOL/L (20-26); ABG PH 7.242 (7.35-7.45); ABG PO2 81.4 MM HG (80-95); ABG TCO2 32.4 MMOL/L (23-27)
[2021-01-18 05:36] LABS: ABG PCO2 71.8 MM HG (35-48)
[2021-01-18] MEDS: LEVOTHYROXINE 50 MCG TABLET PO SCH (06:15)
[2021-01-18] MEDS: MIDAZOLAM 100 MG in DEXTROSE 5% 80 ML IV PRN ×2 (07:27→22:41)
[2021-01-18] MEDS: ASCORBIC ACID 500 MG TABLET PO SCH (08:39)
[2021-01-18] MEDS: ZINC GLUCONATE 50 MG TABLET PO SCH (08:39)
[2021-01-18] MEDS: FAMOTIDINE 20 MG/2 ML VIAL IV SCH (08:39)
[2021-01-18] MEDS: CETIRIZINE 10 MG TABLET PO SCH (08:39)
[2021-01-18] MEDS: POLYETHYLENE GLYCOL POWDER 17 GM PACK PO SCH (08:40)
[2021-01-18] MEDS: carvediloL 12.5 MG TABLET NG SCH ×2 (08:40→21:12)
[2021-01-18] MEDS: CHOLECALCIFEROL 5,000 UNIT TABLET PO SCH (08:42)
[2021-01-18] MEDS: FLUCONAZOLE INJ 200 MG/100 ML PREMIX IV SCH (09:57)
[2021-01-18] MEDS ORDERED: COPPER IV SCH (17:00)
[2021-01-18] MEDS ORDERED: DEXTROSE IV SCH (17:00)
[2021-01-18] MEDS ORDERED: MANGANESE IV SCH (17:00)
[2021-01-18] MEDS ORDERED: MULTIVITAMIN IV SCH (17:00)
[2021-01-18] MEDS ORDERED: [UNRECOGNIZED DRUG - OTHER] IV SCH (17:00)
[2021-01-18] MEDS ORDERED: SELENIUM IV SCH (17:00)
[2021-01-18] MEDS ORDERED: ZINC IV SCH (17:00)
[2021-01-18] MEDS: ALUMINUM/MAGNES/SIMETH MAX STR 30 ML UDCUP PO SCH ×2 (18:03→21:12)
[2021-01-18] MEDS: DILTIAZEM 30 MG TABLET PO SCH (18:17)
[2021-01-18] MEDS: DEXTROSE 5% 1,000 ML IV SCH (18:52)
[2021-01-18] MEDS: MONTELUKAST 10 MG TABLET PO SCH (21:12)
[2021-01-19] MEDS: INSULIN LISPRO 100 UNIT/ML SUBCUT SCH ×4 (00:37→17:56)
[2021-01-19] MEDS: METOCLOPRAMIDE 10 MG/2 ML VIAL IV SCH ×4 (00:37→21:16)
[2021-01-19] MEDS: DILTIAZEM 30 MG TABLET PO SCH ×4 (00:38→17:56)
[2021-01-19] MEDS: methylPREDNISolone SOD SUC 125 MG/2 ML VIAL IV SCH ×2 (00:38→08:05)
[2021-01-19] MEDS: fentaNYL INJ 2,500 MCG in SODIUM CHLORIDE 0.9% 75 ML IV PRN ×2 (00:40→16:01)
[2021-01-19] MEDS: ALUMINUM/MAGNES/SIMETH MAX STR 30 ML UDCUP PO SCH ×6 (00:49→21:11)
[2021-01-19 04:31] LABS: Basophils % 0.1 % (0.0-0.8); Hematocrit 26.6 VOL% (42.0-52.0); Hemoglobin 8.1 GM/DL (14.0-18.0); Immature Granulocytes % 1.1 %; Immature Granulocytes Absolute 0.24 #; Lymphocytes # 0.1 10*3/uL (1.4-4.0); Lymphocytes % 0.5 % (21.2-54.2); Mean Corpuscular HGB Conc 30.5 GM/DL (32-36); Mean Corpuscular Volume 95.7 FL (87-102); Mean Platelet Volume 13.7 FL (9.6-12.0); Monocytes % 1.3 % (1.7-12.7); Platelet Count 59 T/CUMM (130-400); Red Blood Count 2.78 MC/CUMM (3.8-5.5); Red Cell Distribution Width 15.3 % (9.3-17.3)
[2021-01-19 04:40] LABS: ABG Base Excess 1.4 MMOL/L (-2.5-2.5); ABG HCO3 25.6 MMOL/L (20-26); ABG Oxygen Saturation 92.2 % (95-100); ABG PH 7.227 (7.35-7.45); ABG PO2 70.1 MM HG (80-95); ABG TCO2 28.9 MMOL/L (23-27)
[2021-01-19 04:42] LABS: ABG PCO2 73.5 MM HG (35-48)
[2021-01-19 04:53] LABS: Calcium 7.8 MG/DL (8.5-10.1)
[2021-01-19 04:58] LABS: Hypochromasia Slight; Platelet Estimate Decreased; Segmented Neutrophils 100 % (50-85); Total Cells Counted 100
[2021-01-19 05:14] LABS: Potassium 3.7 MMOL/L (3.5-5.1)
[2021-01-19] MEDS: LEVOTHYROXINE 50 MCG TABLET PO SCH (06:09)
[2021-01-19] MEDS: POLYETHYLENE GLYCOL POWDER 17 GM PACK PO SCH (08:04)
[2021-01-19] MEDS: ZINC GLUCONATE 50 MG TABLET PO SCH (08:04)
[2021-01-19] MEDS: FAMOTIDINE 20 MG/2 ML VIAL IV SCH (08:05)
[2021-01-19] MEDS: FLUCONAZOLE INJ 200 MG/100 ML PREMIX IV SCH (11:06)
[2021-01-19] MEDS ORDERED: METOCLOPRAMIDE 10 MG/2 ML VIAL IM SCH (11:30)
[2021-01-19] MEDS: INSULIN GLARGINE 100 UNIT/ML SUBCUT SCH (12:05)
[2021-01-19] MEDS: carvediloL 12.5 MG TABLET NG SCH (12:07)
[2021-01-19] MEDS: DEXTROSE 5% 1,000 ML IV SCH ×2 (13:04→18:01)
[2021-01-19] MEDS: DESITIN 4OZ/NYSTATIN 15 GRAM MIXTURE PASTE TOP SCH ×2 (13:04→21:26)
[2021-01-19] MEDS ORDERED: FAT EMULSION 20% 250 ML IV SCH (14:00)
[2021-01-19] MEDS: FAT EMULSION 20% 250 ML IV SCH (15:26)
[2021-01-19] MEDS: METOPROLOL TARTRATE 25 MG TABLET PO SCH ×2 (16:18→21:11)
[2021-01-19] MEDS: MIDAZOLAM 100 MG in DEXTROSE 5% 80 ML IV PRN (16:29)
[2021-01-19] MEDS ORDERED: MANGANESE IV SCH (17:00)
[2021-01-19] MEDS ORDERED: MULTIVITAMIN IV SCH (17:00)
[2021-01-19] MEDS ORDERED: [UNRECOGNIZED DRUG - OTHER] IV SCH (17:00)
[2021-01-19] MEDS ORDERED: DEXTROSE IV SCH (17:00)
[2021-01-19] MEDS ORDERED: COPPER IV SCH (17:00)
[2021-01-19] MEDS ORDERED: ZINC IV SCH (17:00)
[2021-01-19] MEDS ORDERED: SELENIUM IV SCH (17:00)
[2021-01-19] MEDS: MONTELUKAST 10 MG TABLET PO SCH (21:11)
[2021-01-19] MEDS: methylPREDNISolone SOD SUC 40 MG/1 ML VIAL IV SCH (21:14)
[2021-01-20] MEDS: ALUMINUM/MAGNES/SIMETH MAX STR 30 ML UDCUP PO SCH ×6 (00:02→21:29)
[2021-01-20] MEDS: DILTIAZEM 30 MG TABLET PO SCH ×4 (00:02→18:18)
[2021-01-20] MEDS: INSULIN LISPRO 100 UNIT/ML SUBCUT SCH ×8 (00:10→22:36)
[2021-01-20] MEDS: DEXTROSE 5% IV PRN ×3 (03:13→20:45)
[2021-01-20] MEDS: CISATRACURIUM IV PRN ×3 (03:13→20:45)
[2021-01-20 03:21] LABS: ABG HCO3 23.3 MMOL/L (20-26); ABG Oxygen Saturation 80.1 % (95-100); ABG TCO2 28.5 MMOL/L (23-27)
[2021-01-20 03:24] LABS: ABG PH 7.149 (7.35-7.45)
[2021-01-20 03:25] LABS: ABG PCO2 84.3 MM HG (35-48)
[2021-01-20] MEDS: fentaNYL INJ 2,500 MCG in SODIUM CHLORIDE 0.9% 75 ML IV PRN ×2 (03:55→20:23)
[2021-01-20] MEDS: METOCLOPRAMIDE 10 MG/2 ML VIAL IV SCH ×4 (04:19→21:25)
[2021-01-20 05:04] LABS: Basophils % 0.1 % (0.0-0.8); Hemoglobin 7.4 GM/DL (14.0-18.0); Immature Granulocytes Absolute 0.15 #; Lymphocytes # 0.1 10*3/uL (1.4-4.0); Lymphocytes % 0.5 % (21.2-54.2); Mean Corpuscular HGB Conc 29.6 GM/DL (32-36); Mean Corpuscular Volume 98.8 FL (87-102); Monocytes % 0.9 % (1.7-12.7); Neutrophils % 97.5 % (38.7-73.9); Red Blood Count 2.53 MC/CUMM (3.8-5.5); Red Cell Distribution Width 15.5 % (9.3-17.3)
[2021-01-20 05:18] LABS: Albumin 1.8 G/DL (3.4-5.0); Bilirubin,Total 0.4 MG/DL (0.20-1.00); Calcium 7.2 MG/DL (8.5-10.1); Osmolality,Calculated 356.6 MOS/KG (273-304); Potassium 3.9 MMOL/L (3.5-5.1); Total Protein 4.6 G/DL (6.4-8.2)
[2021-01-20] MEDS: MIDAZOLAM 100 MG in DEXTROSE 5% 80 ML IV PRN ×2 (05:38→17:29)
[2021-01-20] MEDS: LEVOTHYROXINE 50 MCG TABLET PO SCH (06:08)
[2021-01-20 06:54] LABS: White Blood Count 14.5 T/CUMM (4-12)
[2021-01-20 06:55] LABS: Platelet Count 31 T/CUMM (130-400)
[2021-01-20 07:01] LABS: Band Neutrophils 1 % (0-10); Lymphocytes 2 % (20-55); Segmented Neutrophils 95 % (50-85); Total Cells Counted 100
[2021-01-20 07:02] LABS: Acanthocytes Few; Hypochromasia Slight; Microcytosis 1+; Ovalocytes Few; Platelet Estimate Decreased
[2021-01-20] MEDS: POLYETHYLENE GLYCOL POWDER 17 GM PACK PO SCH (09:19)
[2021-01-20] MEDS: ZINC GLUCONATE 50 MG TABLET PO SCH (09:19)
[2021-01-20] MEDS: INSULIN GLARGINE 100 UNIT/ML SUBCUT SCH (09:20)
[2021-01-20] MEDS: FAMOTIDINE 20 MG/2 ML VIAL IV SCH (09:20)
[2021-01-20] MEDS: methylPREDNISolone SOD SUC 40 MG/1 ML VIAL IV SCH ×2 (09:21→21:28)
[2021-01-20] MEDS ORDERED: SODIUM CHLORIDE 0.9% 1,000 ML IV PRN ×2 (09:47→09:48)
[2021-01-20] MEDS: DEXTROSE 5% 1,000 ML IV SCH (10:22)
[2021-01-20] MEDS: DESITIN 4OZ/NYSTATIN 15 GRAM MIXTURE PASTE TOP SCH ×2 (10:23→21:31)
[2021-01-20] MEDS: METOPROLOL TARTRATE 25 MG TABLET PO SCH ×3 (11:35→21:30)
[2021-01-20] MEDS ORDERED: INSULIN GLARGINE 100 UNIT/ML SUBCUT ONE ×2 (12:08→21:00)
[2021-01-20] MEDS ORDERED: INSULIN LISPRO 100 UNIT/ML ONE (14:33)
[2021-01-20 15:05] LABS: ABG Base Excess -1.2 MMOL/L (-2.5-2.5); ABG HCO3 23.4 MMOL/L (20-26); ABG Oxygen Saturation 92.9 % (95-100); ABG TCO2 28.3 MMOL/L (23-27)
[2021-01-20 15:07] LABS: ABG PCO2 84.4 MM HG (35-48); ABG PH 7.148 (7.35-7.45)
[2021-01-20] MEDS: SELENIUM IV SCH ×2 (15:15→17:28)
[2021-01-20] MEDS: MANGANESE IV SCH ×2 (15:15→17:28)
[2021-01-20] MEDS: [UNRECOGNIZED DRUG - OTHER] IV SCH ×2 (15:15→17:28)
[2021-01-20] MEDS: FAT EMULSION 20% 250 ML IV SCH (15:15)
[2021-01-20] MEDS: MULTIVITAMIN IV SCH ×2 (15:15→17:28)
[2021-01-20] MEDS: COPPER IV SCH ×2 (15:15→17:28)
[2021-01-20] MEDS: ZINC IV SCH ×2 (15:15→17:28)
[2021-01-20] MEDS: IVERMECTIN 3 MG TABLET PO SCH (15:43)
[2021-01-20] MEDS ORDERED: VANCOMYCIN INJ 2,000 MG in SODIUM CHLORIDE 0.9% 500 ML IV ONE (20:00)
[2021-01-20] MEDS: MONTELUKAST 10 MG TABLET PO SCH (21:30)
[2021-01-21] MEDS: DILTIAZEM 30 MG TABLET PO SCH ×4 (00:27→18:25)
[2021-01-21] MEDS: ALUMINUM/MAGNES/SIMETH MAX STR 30 ML UDCUP PO SCH ×6 (00:27→21:00)
[2021-01-21] MEDS: INSULIN LISPRO 100 UNIT/ML SUBCUT SCH ×5 (00:27→09:55)
[2021-01-21] MEDS: fentaNYL INJ 2,500 MCG in SODIUM CHLORIDE 0.9% 75 ML IV PRN ×5 (01:58→21:10)
[2021-01-21] MEDS ORDERED: INSULIN REGULAR 100 UNIT/ML IV ONE ×2 (02:15→04:19)
[2021-01-21] MEDS: CISATRACURIUM IV PRN (03:25)
[2021-01-21] MEDS: DEXTROSE 5% IV PRN (03:25)
[2021-01-21] MEDS: METOCLOPRAMIDE 10 MG/2 ML VIAL IV SCH ×4 (04:00→20:58)
[2021-01-21 04:11] LABS: ABG HCO3 20.2 MMOL/L (20-26); ABG Oxygen Saturation 93.8 % (95-100); ABG PO2 76.2 MM HG (80-95); ABG TCO2 26.4 MMOL/L (23-27)
[2021-01-21 04:12] LABS: ABG PH 7.071 (7.35-7.45)
[2021-01-21 04:13] LABS: ABG PCO2 92.6 MM HG (35-48)
[2021-01-21 04:41] LABS: Basophils % 0.1 % (0.0-0.8); Hematocrit 26.5 VOL% (42.0-52.0); Immature Granulocytes % 1.3 %; Lymphocytes # 0.1 10*3/uL (1.4-4.0); Lymphocytes % 0.5 % (21.2-54.2); Mean Corpuscular HGB Conc 30.2 GM/DL (32-36); Mean Corpuscular Volume 98.9 FL (87-102); Mean Platelet Volume 13.9 FL (9.6-12.0); Monocytes % 1.3 % (1.7-12.7); NRBC # 0.02 10*3/uL; Neutrophils % 96.8 % (38.7-73.9); Platelet Count 48 T/CUMM (130-400); Red Blood Count 2.68 MC/CUMM (3.8-5.5); Red Cell Distribution Width 15.4 % (9.3-17.3)
[2021-01-21 04:55] LABS: Albumin 1.8 G/DL (3.4-5.0); Bilirubin,Total 0.6 MG/DL (0.20-1.00); Calcium 6.9 MG/DL (8.5-10.1); Osmolality,Calculated 354.1 MOS/KG (273-304); Potassium 3.9 MMOL/L (3.5-5.1); Total Protein 4.7 G/DL (6.4-8.2)
[2021-01-21] MEDS: MIDAZOLAM 100 MG in DEXTROSE 5% 80 ML IV PRN (05:06)
[2021-01-21 05:19] LABS: Band Neutrophils 1 % (0-10); Hypochromasia Slight; Platelet Estimate Decreased; Segmented Neutrophils 97 % (50-85); Total Cells Counted 100
[2021-01-21] MEDS: LEVOTHYROXINE 50 MCG TABLET PO SCH (06:20)
[2021-01-21] MEDS: methylPREDNISolone SOD SUC 40 MG/1 ML VIAL IV SCH ×2 (08:11→20:55)
[2021-01-21] MEDS: POLYETHYLENE GLYCOL POWDER 17 GM PACK PO SCH (08:12)
[2021-01-21] MEDS: ZINC GLUCONATE 50 MG TABLET PO SCH (08:12)
[2021-01-21] MEDS: FAMOTIDINE 20 MG/2 ML VIAL IV SCH (08:12)
[2021-01-21] MEDS: IVERMECTIN 3 MG TABLET PO SCH (08:15)
[2021-01-21] MEDS ORDERED: CISATRACURIUM 200 MG in SODIUM CHLORIDE 0.9% 180 ML IV PRN (08:32)
[2021-01-21] MEDS ORDERED: POTASSIUM CHLORIDE RIDER 20 MEQ/100 ML PREMIX IV PRN (09:15)
[2021-01-21] MEDS ORDERED: POTASSIUM CHLORIDE RIDER 10 MEQ/100 ML PREMIX IV PRN (09:15)
[2021-01-21] MEDS: INSULIN REGULAR DRIP 100 ML IV PRN ×2 (09:50→20:10)
[2021-01-21] MEDS: METOPROLOL TARTRATE 25 MG TABLET PO SCH ×2 (09:58→14:43)
[2021-01-21] MEDS: DESITIN 4OZ/NYSTATIN 15 GRAM MIXTURE PASTE TOP SCH ×2 (09:58→21:00)
[2021-01-21] MEDS: INSULIN GLARGINE 100 UNIT/ML SUBCUT SCH (10:26)
[2021-01-21 10:29] LABS: ABG Base Excess -5.3 MMOL/L (-2.5-2.5); ABG HCO3 19.9 MMOL/L (20-26); ABG PO2 82.2 MM HG (80-95); ABG TCO2 26.2 MMOL/L (23-27)
[2021-01-21 10:33] LABS: ABG PCO2 93.4 MM HG (35-48); ABG PH 7.064 (7.35-7.45)
[2021-01-21] MEDS: MIDAZOLAM 100 MG in SODIUM CHLORIDE 0.9% 80 ML IV PRN ×2 (10:44→23:55)
[2021-01-21] MEDS: FAT EMULSION 20% 250 ML IV SCH (16:04)
[2021-01-21] MEDS: MULTIVITAMIN IV SCH (18:01)
[2021-01-21] MEDS: ZINC IV SCH (18:01)
[2021-01-21] MEDS: [UNRECOGNIZED DRUG - OTHER] IV SCH (18:01)
[2021-01-21] MEDS: MANGANESE IV SCH (18:01)
[2021-01-21] MEDS: SELENIUM IV SCH (18:01)
[2021-01-21] MEDS: COPPER IV SCH (18:01)
[2021-01-21] MEDS: PHENYLEPHRINE DRIP 40 MG/250 ML PREMIX IV PRN (19:20)
[2021-01-21] MEDS: MONTELUKAST 10 MG TABLET PO SCH (21:00)
[2021-01-22] MEDS: ALUMINUM/MAGNES/SIMETH MAX STR 30 ML UDCUP PO SCH ×6 (00:55→20:45)
[2021-01-22] MEDS: DILTIAZEM 30 MG TABLET PO SCH ×2 (00:55→06:04)
[2021-01-22] MEDS: INSULIN REGULAR DRIP 100 ML IV PRN ×6 (01:15→21:30)
[2021-01-22] MEDS: METOCLOPRAMIDE 10 MG/2 ML VIAL IV SCH ×4 (03:10→20:45)
[2021-01-22] MEDS: PHENYLEPHRINE DRIP 40 MG/250 ML PREMIX IV PRN ×5 (03:46→22:33)
[2021-01-22 04:13] LABS: ABG Base Excess -8.5 MMOL/L (-2.5-2.5); ABG HCO3 22.8 MMOL/L (20-26); ABG PO2 65.8 MM HG (80-95); ABG TCO2 25.7 MMOL/L (23-27)
[2021-01-22 04:19] LABS: ABG PH 7.008 (7.35-7.45)
[2021-01-22 04:26] LABS: Basophils % 0.1 % (0.0-0.8); Hematocrit 24.3 VOL% (42.0-52.0); Hemoglobin 7.3 GM/DL (14.0-18.0); Immature Granulocytes % 4.5 %; Immature Granulocytes Absolute 0.47 #; Lymphocytes # 0.1 10*3/uL (1.4-4.0); Monocytes % 3.1 % (1.7-12.7); NRBC # 0.11 10*3/uL; Neutrophils % 91.3 % (38.7-73.9); Red Blood Count 2.43 MC/CUMM (3.8-5.5); Red Cell Distribution Width 15.5 % (9.3-17.3); White Blood Count 10.5 T/CUMM (4-12)
[2021-01-22 04:42] LABS: Platelet Count 31 T/CUMM (130-400)
[2021-01-22 04:50] LABS: Albumin 1.6 G/DL (3.4-5.0); Bilirubin,Total 1.2 MG/DL (0.20-1.00); Calcium 6.9 MG/DL (8.5-10.1); Osmolality,Calculated 338.5 MOS/KG (273-304); Potassium 4.2 MMOL/L (3.5-5.1); Total Protein 4.4 G/DL (6.4-8.2)
[2021-01-22 04:52] LABS: Hypochromasia 1+; Lymphocytes 1 % (20-55); Nucleated Red Blood Cells 1 (0-5); Platelet Estimate Decreased; Segmented Neutrophils 97 % (50-85); Total Cells Counted 100
[2021-01-22 04:53] LABS: Microcytosis Slight; Ovalocytes Slight
[2021-01-22] MEDS: fentaNYL INJ 2,500 MCG in SODIUM CHLORIDE 0.9% 75 ML IV PRN ×3 (05:20→19:49)
[2021-01-22] MEDS: LEVOTHYROXINE 50 MCG TABLET PO SCH (06:04)
[2021-01-22] MEDS: methylPREDNISolone SOD SUC 40 MG/1 ML VIAL IV SCH ×2 (08:48→20:45)
[2021-01-22] MEDS: IVERMECTIN 3 MG TABLET PO SCH (08:49)
[2021-01-22] MEDS: FAMOTIDINE 20 MG/2 ML VIAL IV SCH (08:49)
[2021-01-22] MEDS: ZINC GLUCONATE 50 MG TABLET PO SCH (08:50)
[2021-01-22] MEDS: POLYETHYLENE GLYCOL POWDER 17 GM PACK PO SCH (08:53)
[2021-01-22] MEDS: DESITIN 4OZ/NYSTATIN 15 GRAM MIXTURE PASTE TOP SCH (08:53)
[2021-01-22] MEDS: INSULIN GLARGINE 100 UNIT/ML SUBCUT SCH (09:07)
[2021-01-22] MEDS: FAT EMULSION 20% 250 ML IV SCH (13:53)
[2021-01-22] MEDS ORDERED: SODIUM CHLORIDE 0.9% 1,000 ML IV PRN (13:59)
[2021-01-22] MEDS ORDERED: SODIUM CHLORIDE 0.9% 1,000 ML IV SCH (15:00)
[2021-01-22] MEDS: MIDAZOLAM 100 MG in SODIUM CHLORIDE 0.9% 80 ML IV PRN (16:24)
[2021-01-22] MEDS ORDERED: MANGANESE IV SCH (17:00)
[2021-01-22] MEDS ORDERED: MULTIVITAMIN IV SCH (17:00)
[2021-01-22] MEDS ORDERED: [UNRECOGNIZED DRUG - OTHER] IV SCH (17:00)
[2021-01-22] MEDS ORDERED: ZINC IV SCH (17:00)
[2021-01-22] MEDS ORDERED: COPPER IV SCH (17:00)
[2021-01-22] MEDS ORDERED: SELENIUM IV SCH (17:00)
[2021-01-22 18:17] LABS: Hemoglobin 8.3 GM/DL (14.0-18.0)
[2021-01-22] MEDS: MONTELUKAST 10 MG TABLET PO SCH (20:45)
[2021-01-23] MEDS: INSULIN REGULAR DRIP 100 ML IV PRN ×6 (00:33→18:09)
[2021-01-23] MEDS: ALUMINUM/MAGNES/SIMETH MAX STR 30 ML UDCUP PO SCH ×6 (00:45→20:34)
[2021-01-23] MEDS: PHENYLEPHRINE DRIP 40 MG/250 ML PREMIX IV PRN ×2 (01:06→13:10)
[2021-01-23] MEDS: PHENYLEPHRINE INJ 160 MG in SODIUM CHLORIDE 0.9% 234 ML IV PRN ×3 (01:06→13:10)
[2021-01-23 03:28] LABS: Red Blood Count 2.27 MC/CUMM (3.8-5.5)
[2021-01-23 03:29] LABS: Hematocrit 23.9 VOL% (42.0-52.0); Hemoglobin 7.1 GM/DL (14.0-18.0); Immature Granulocytes Absolute 0.04 #; Lymphocytes # 0.1 10*3/uL (1.4-4.0); Lymphocytes % 3.2 % (21.2-54.2); Mean Corpuscular HGB Conc 29.7 GM/DL (32-36); Mean Corpuscular Volume 105.3 FL (87-102); Monocytes % 2.7 % (1.7-12.7); NRBC # 0.27 10*3/uL; Neutrophils % 93.1 % (38.7-73.9); Red Cell Distribution Width 15.6 % (9.3-17.3)
[2021-01-23] MEDS: DESITIN 4OZ/NYSTATIN 15 GRAM MIXTURE PASTE TOP SCH ×2 (03:32→09:15)
[2021-01-23 03:33] LABS: Platelet Count 10 T/CUMM (130-400)
[2021-01-23] MEDS ORDERED: SODIUM BICARBONATE 50 MEQ/50 ML VIAL IV ONE ×4 (03:53→12:23)
[2021-01-23 03:54] LABS: Band Neutrophils 1 % (0-10); Lymphocytes 6 % (20-55); Nucleated Red Blood Cells 7 (0-5); Platelet Estimate Decreased; Segmented Neutrophils 90 % (50-85); Total Cells Counted 100
[2021-01-23 03:55] LABS: Hypochromasia Slight; Microcytosis Slight
[2021-01-23] MEDS: NOREPINEPHRINE 16 MG in SODIUM CHLORIDE 0.9% 234 ML IV PRN ×3 (04:12→16:10)
[2021-01-23] MEDS: fentaNYL INJ 2,500 MCG in SODIUM CHLORIDE 0.9% 75 ML IV PRN ×2 (04:15→12:51)
[2021-01-23 04:17] LABS: Albumin 1.1 G/DL (3.4-5.0); Bilirubin,Total 2.2 MG/DL (0.20-1.00); Calcium 6.8 MG/DL (8.5-10.1); Ferritin 23521.9 ng/ml (26-388); Osmolality,Calculated 327.1 MOS/KG (273-304); Potassium 5.9 MMOL/L (3.5-5.1); Total Protein 3.2 G/DL (6.4-8.2)
[2021-01-23] MEDS: METOCLOPRAMIDE 10 MG/2 ML VIAL IV SCH ×3 (04:52→15:45)
[2021-01-23 05:23] LABS: ABG Base Excess -16.2 MMOL/L (-2.5-2.5); ABG HCO3 11.9 MMOL/L (20-26); ABG Oxygen Saturation 96.6 % (95-100); ABG TCO2 16.6 MMOL/L (23-27)
[2021-01-23 05:24] LABS: ABG PH 6.932 (7.35-7.45)
[2021-01-23] MEDS: LEVOTHYROXINE 50 MCG TABLET PO SCH (06:14)
[2021-01-23] MEDS ORDERED: SODIUM BICARB INJ 150 MEQ in STERILE WATER INJ 850 ML IV SCH (09:00)
[2021-01-23] MEDS ORDERED: SODIUM BICARB INJ 150 MEQ in STERILE WATER INJ 1,000 ML IV SCH (09:00)
[2021-01-23] MEDS ORDERED: FAMOTIDINE 20 MG/2 ML VIAL IV SCH (09:00)
[2021-01-23] MEDS: POLYETHYLENE GLYCOL POWDER 17 GM PACK PO SCH (09:14)
[2021-01-23] MEDS: IVERMECTIN 3 MG TABLET PO SCH (09:14)
[2021-01-23] MEDS: ZINC GLUCONATE 50 MG TABLET PO SCH (09:14)
[2021-01-23] MEDS: methylPREDNISolone SOD SUC 40 MG/1 ML VIAL IV SCH (09:14)
[2021-01-23] MEDS: MIDAZOLAM 100 MG in SODIUM CHLORIDE 0.9% 80 ML IV PRN (09:22)
[2021-01-23] MEDS: FAT EMULSION 20% 250 ML IV SCH (14:09)
[2021-01-23] MEDS ORDERED: NOREPINEPHRINE 4 MG/4 ML VIAL IV ONE (16:07)
[2021-01-23] MEDS ORDERED: INSULIN REGULAR IV SCH (17:00)
[2021-01-23] MEDS ORDERED: AMINO ACIDS IV SCH (17:00)
[2021-01-23] MEDS ORDERED: [UNRECOGNIZED DRUG - OTHER] IV SCH (17:00)
[2021-01-23] MEDS ORDERED: MULTIVITAMIN IV SCH (17:00)
[2021-01-23 17:43] VITALS: BP 74/29
[2021-01-26 17:11] LABS: Herpesvirus 7 IgM Ab by IFA <1:20
== END 2021-01-23 18:37 | disposition expired | DRG 207 ==
LOC: EDBD → EDUNIT# → N.ED 11:58 → N.EDINP 14:27 → SUATTDRO 14:27 → N.CC 15:12
PROVIDERS: ADMIT Internal Medicine; ATTEND Internal Medicine